=== PATIENT | female | born 1930 | race Caucasian/White ===

== ENCOUNTER → 2017-05-01 | Outpatient (CLI) | payer MEDICARE ==
--- NOTE | 2017-05-01 11:02 | WOMENS IMAGING REPORT ---
EXAM DESCRIPTION: BILAT DIAGNOSTIC MAMMO W/CAD COMPLETED DATE/TIME: 05/01/2017 9:46 am REASON FOR STUDY: NODULAR DENSITY;N63 N63 UNSPECIFIED LUMP IN BREAST COMPARISON: None. TECHNIQUE: Standard craniocaudal and mediolateral oblique views of each breast recorded using digita l acquisition. LIMITATIONS: None. FINDINGS: RIGHT BREAST MASSES: There is CALCIFICATIONS: No new or suspicious calcifications. ARCHITECTURAL DISTORTION: None. DEVELOPING DENSITY: None. ASYMMETRY: There is asymmetric density in the retroareolar portion of the right breast with apparent nipple retraction. OTHER: There is associated skin thickening. Ultrasound will be obtained for further evaluation LEFT BREAST MASSES: No suspicious masses. CALCIFICATIONS: No new or suspicious calcifications. ARCHITECTURAL DISTORTION: None. DEVELOPING DENSITY: None. ASYMMETRY: None noted. OTHER: No other significant finding. Read with the assistance of CAD: .[facility] - R2 Cenova Version 1.3 .[facility] - R2 Cenova Version 1.3 .[facility] - R2 Cenova Version 2.4 .[facility] - R2 Cenova Version 2.4 .[facility] - R2 Head Cager Version 9.2 BREAST ULTRASOUND: TECHNIQUE: Static and dynamic grayscale images acquired of the right breast in the specific areas of clinical/mammographic concern. Selected color Doppler images recorded. ELASTOGRAPHY PERFORMED: No. LIMITATIONS: None. FINDINGS: MASS: An irregular hypoechoic solid mass is identified measuring 1.3 x 1.1 x 1.4 cm in diameter in th e retroareolar area at the approximate 12 o'clock position suspicious for a neoplastic process. ELASTOGRAPHY CHARACTERISTICS: Not applicable. OTHER: No other significant finding. IMPRESSION: Asymmetric density in the retroareolar portion of the right breast with apparent nipple retraction and skin thickening. An irregular hypoechoic solid mass is identified on the ultrasound e valuation suspicious for a neoplastic process. BREAST DENSITY: b. There are scattered areas of fibroglandular density. BIRAD: 4 Suspicious. Biopsy should be considered. RECOMMENDATION: RECOMMENDED FOLLOW UP: Birads 4: Biopsy should be performed in the absence of clinic al contraindication. SPECIFIC INTERVENTION/IMAGING/CONSULTATION RECOMMENDED:The suspicious finding(s) amenable to US guide d core/vacuum assisted biopsy. COMMUNICATION:The imaging findings were not discussed with the patient. Her referring provider has be en notified of the findings. COMMENT: The patient has been notified of the results by letter per SA requirements. Additional no tification policies are in place for contacting patient with suspicious or incomplete findings. Quality ID #225: The [employer] recommends an annual screening mammogram for women aged 40 years or over. This facility utilizes a reminder system to ensure that all patients receive reminder letters, and/or direct phone calls for appointments. This includes reminders for routine scr eening mammograms, diagnostic mammograms, or other Breast Imaging Interventions when appropriate. Th is patient will be placed in the appropriate reminder system. The [employer] (ACR) has developed recommendations for screening MRI of the breast s in certain patient populations, to be used in conjunction with mammography. Breast MRI surveillanc e may be appropriate for women with more than 20% lifetime risk of developing breast cancer as deter mined by genetic testing, significant family history of the disease, or history of mantle radiation f or Hodgkins Disease. ACR Practice Guidelines 2008. TECHNICAL DOCUMENTATION: FINDING NUMBER: (1) ASSESSMENT: (1) JOB ID: [id number] [employer]- All Rights Reserved
--- NOTE | 2017-05-01 11:03 | WOMENS IMAGING REPORT ---
EXAM DESCRIPTION: U/S BREAST UNILAT LIMITED COMPLETE DATE/TIME: 05/01/2017 10:16 am REASON FOR STUDY: RT BREAST MASS,N63 N63 UNSPECIFIED LUMP IN BREAST FINDINGS: Please see combined report for performance of procedure and radiologic supervision and int erpretation. IMPRESSION: Please see combined report for performance of procedure and radiologic supervision and i nterpretation.
== END ==
LOC: WI 08:41
PROVIDERS: ATTEND Internal Medicine
DX: N63 Unspecified lump in breast (principal)
CPT/HCPCS: 76642; G0204; 77066

== ENCOUNTER → 2017-05-30 | Outpatient (CLI) | payer MEDICARE ==
[~2017-05-30] MED LIST: AMINOPHYLLINE INJ/PF 250 MG/10 ML SDV IV ONE; REGADENOSON INJ 0.4 MG/5 ML DISP.SYRIN IV ONE
--- NOTE | 2017-05-30 13:34 | DRAGON STRESS TEST REPORT ---
Times INTRAVENOUS LEXISCAN CARDIOLITE STRESS TEST USING SINGLE PHOTON EMMISION COMPUTERIZED TOMOGRAPHIC. DATE OF PROCEDURE: May 30, 2017 INDICATION : Abnormal electrocardiogram CARDIAC RISK FACTORS: Hypertension, rheumatoid arthritis RESTING EKG: Sinus rhythm with left bundle branch block pattern STRESS EKG: No significant changes noted with LexiScan bolus REASON FOR TERMINATION: Protocol. PROCEDURE REPORT: Baseline heart rate 72 beats per minute with blood pressure of 135/84. Patient had no significant complaints. Heart rate at 2 minutes post bolus 96 with a blood pressure of 138/57. 3 minutes post bolus heart rate 82 with blood pressure of 140/60. No significant EKG changes were noted. Patient had no significant complaints during the procedure or postprocedure. Patient injected with Aminophyllin 75 mg at 3 minutes or later after Lexiscan bolus. CONCLUSIONS: Normal EKG and hemodynamic response to IV LexiScan. NUCLEAR DATA: At rest the patient was given 10.29 millicuries of technetium 99 sestamibi injected intravenously. As per protocol rest gated SPECT images were obtained. Subsequently the patient was given intravenous LexiScan at a dose of 0.4 mg in 5 mL intravenously, followed by flush with normal saline. Subsequently the stress dose of 30.2 millicuries of technetium 99 sestamibi was injected intravenously. As per protocol stress gated images were obtained. NUCLEAR INTERPRETATION: Both raw and processed data were used for interpretation. Visual, qualitative, computer-generated quantitative data was used. There was good myocardial uptake of technetium compound. Motion artifact and soft tissue attenuations were noted. Increased visceral uptake was noted. No definitive areas of transient perfusion defect noted, except for mild fixed defect noted in the basal inferior wall. No definitive areas of fixed perfusion defect or scars noted. EKG gated imaging showed LV EF at 55 %, rest and stress gated EF similar visually. T. I D. ratio was 0.91. Lung heart ratio noted to be within normal limits 0.34. No significant extracardiac and abnormal radiotracer activities were noted. RV free wall uptake was noted to be WNL. IMPRESSION: Also refer to comments under nuclear interpretation. Also test results needs to be interpreted in the context of pretest probability. 1. There is no definitive scintigraphic evidence of LexiScan induced myocardial ischemia. 2. There is no definitive scintigraphic evidence of myocardial infarction/scar except for small area of fixed defect in the basal inferior wall consistent with mild scar. 3. EKG gated imaging shows left ventricular ejection fraction of approximately 55 %. 4. Clinical correlation requested as occasionally single vessel disease or balanced ischemia could be missed. In approximately 10% of the cases Lexiscan may not cause adequate vasodilatory stress. RECOMMENDATIONS: Aggressive risk factor modification, medical therapy. Clinical correlation with echocardiogram derived ejection fraction. Inability to exercise by itself can lead to increased cardiovascular event risks. Consider cardiology consultation and or follow-up if clinically indicated. I AM AVAILABLE FOR CARDIOLOGY CONSULTATION AND FOLLOWUP IF REQUESTED BY PMJesús Gregorio M.D., [employer] forder operator, Board certified in cardiovascular diseases, Nuclear cardiology, Echocardiography Cardiac CT and cardiac MRI Ph. [phone] MARGARITO
== END ==
LOC: RAD 06:39
PROVIDERS: ATTEND Internal Medicine Cardiovascular Disease
DX: I44.7 Left bundle-branch block, unspecified (principal); R94.31 Abnormal electrocardiogram [ECG] [EKG]
CPT/HCPCS: 93017; 78452; A9500; J2785; J0280; Q9969

== ENCOUNTER 2017-06-05 07:36 | Day surgery (SDC) | payer MEDICARE ==
[2017-05-24 12:45] LABS: HEMATOCRIT 37.1 % (36.0-47.0); HEMOGLOBIN 12.8 g/dL (12.0-15.5); HGB HCT DIFFERENCE 1.3; MEAN CORPUSCULAR HGB CONC 34.4 g/dL (32.0-36.0); MEAN CORPUSCULAR VOLUME 99 fl (80-97); RED BLOOD COUNT 3.76 10^6/uL (3.72-5.28); RED CELL DISTRIBUTION WIDTH 15.7 % (11.5-14.0)
[2017-05-24 13:04] LABS: ANION GAP 11 (5-19); BLOOD UREA NITROGEN 29 mg/dL (7-20); CALCIUM 9.8 mg/dL (8.4-10.2); CARBON DIOXIDE 21 mmol/L (22-30); CHLORIDE 107 mmol/L (98-107); CREATININE RESULT 0.89 mg/dL (0.52-1.25); GLUCOSE 109 mg/dL (75-110); POTASSIUM 4.6 mmol/L (3.6-5.0); SODIUM 139.4 mmol/L (137-145)
--- NOTE | 2017-05-25 00:08 | EKG REPORT ---
SEVERITY:- ABNORMAL ECG - SINUS RHYTHM PROBABLE LEFT ATRIAL ABNORMALITY LEFT VENTRICULAR HYPERTROPHY INFERIOR INFARCT, ACUTE ANTERIOR INFARCT, ACUTE : Confirmed by: Vikas Gregorio 25-May-2017 00:07:21
[~2017-06-05 07:36] MED LIST changes: -AMINOPHYLLINE INJ/PF 250 MG/10 ML SDV IV ONE; +CLINDAMYCIN 600 MG/D5W RTU 600 MG/50 ML RTUPB IV PRN; +LACTATED RINGERS 1000 ML IV PRN; +LIDOCAINE 0.5% INJ-PF (5 MG/ML) 50 ML SDV SUBCUT PRN; -REGADENOSON INJ 0.4 MG/5 ML DISP.SYRIN IV ONE
[2017-06-05] MEDS ORDERED: METHYLENE BLUE 50 MG/10 ML AMPULE ONE (07:38)
[2017-06-05 08:22] LABS: PROTHROMBIN TIME 13.1 SEC (11.4-15.4)
[2017-06-05 08:23] LABS: PARTIAL THROMBOPLASTIN TIME 33.5 SEC (23.5-35.8)
[2017-06-05] MEDS ORDERED: ALBUTEROL SULFATE 0.083% NEB 2.5 MG/3 ML AMPUL NEB ONE (08:56)
[2017-06-05] MEDS ORDERED: LIDOCAINE 1% INJ-PF (10 MG/ML) 30 ML SDV ONE (09:06)
[2017-06-05] MEDS ORDERED: MICROFIBRILLAR COLLAGEN 1 GM PACK ONE (09:06)
[2017-06-05] MEDS ORDERED: FENTANYL CITRATE INJ/PF 250 MCG/5 ML AMPULE ONE (09:16)
[2017-06-05] MEDS ORDERED: MIDAZOLAM 2 MG/2 ML INJ ONE (09:16)
[2017-06-05] MEDS ORDERED: MORPHINE SULFATE 10 MG/ML INJ ONE (09:17)
[2017-06-05] MEDS ORDERED: EPHEDRINE SULFATE INJ 50 MG/1 ML AMPULE ONE (09:17)
[2017-06-05] MEDS ORDERED: ACETAMINOPHEN 0 ML IV ONE (09:17)
[2017-06-05] MEDS ORDERED: PROPOFOL INJ 200 MG/20 ML VIAL IV ONE (09:17)
[2017-06-05] MEDS ORDERED: BUPIVACAINE INJ/PF LIPOSOME/PF 266 MG/20 ML SDV ONE (10:49)
[2017-06-05] MEDS ORDERED: FENTANYL CITRATE INJ/PF 100 MCG/2 ML AMPUL IV PRN ×3 (11:00)
[2017-06-05] MEDS ORDERED: DIPHENHYDRAMINE HCL 50 MG/ML VIAL IV PRN (11:00)
[2017-06-05] MEDS ORDERED: KETOROLAC TROMETHAMINE 10 MG TABLET PO PRN (11:16)
--- NOTE | 2017-06-05 11:16 | PDOC DISCHARGE SUMMARY ---
Discharge Summary (SDC) - Discharge Final Diagnosis: right breast carcinoma Date of Surgery: 06/05/17 Discharge Date: 06/05/17 Condition: Stable Treatment or Instructions: [facility] [address] [place] [id number] Care Instructions Following Your Mastectomy Activities: Resume normal activities when you feel comfortable. It is best to remain as active as possible to speed your recovery. It is common to experience some fatigue after surgery and you may find that short naps are helpful. Avoid strenuous activity such as weight lifting, tennis, etc at your surgical site for two weeks. Perform gentle arm exercises daily and do not favor your operative arm to due increased risk of mobility issues postoperatively. No driving for 7 days after surgery. Do not drive if you are taking pain medication other than Tylenol or Ibuprofen. No swimming, tub baths or soaking in a hot tub for 4 weeks. There are no dietary restrictions. Do not smoke as this impairs wound healing. Surgical Site care: You may shower in 48 hours to include washing the wound with soap and water using your hands. Leave the skin glue intact. Do not scrub the incision. Pat the area dry with a towel. You do not need to recover the wound although some patients find that they feel more comfortable using a light dressing for a few days to absorb any minimal drainage which may occur. Many patients also find that keeping a dressing around the drain exit site is helpful to absorb any drainage which may leak around the tubing. If you use a dressing in this manner change it at least every day. Do not use heating pad or apply an ice pack to the operative site. You may apply deodorant if you are careful to avoid getting it on the wound itself. Empty the bulbs attached to the drain every 12 hours and measure the fluid output separately from each drain. Please also strip each drain each time you empty it to prevent clogging. Keep a record of the output and bring this record with you each time you come to the office for postoperative care. A drain is ready to be removed when its output is 30 mL per 24 hours per drain for 2 consecutive days. Please call the office to inform our staff that you need to come in for drain removal. Medications: Take Motrin (ibuprofen) 600 mg to 800 mg every 8 hours around the clock. You may taper this medication as you experience less pain. Take narcotic pain control such as Tylenol #3 or Percocet one to tablets every six hours as needed for breakthrough pain. Do not take over the counter Tylenol if you are taking either Tylenol #3 or Percocet. Again, you cannot drive while taking narcotic pain medication. Resume all of your normal prescription medications after your surgery unless instructed otherwise. You may experience constipation after surgery while taking pain medications. If using a narcotic on a regular basis, take a stool softener such as Colace twice a day. It is helpful to stay hydrated by drinking lots of fluids. Walking is also helpful and is good exercise after surgery. If you need extra help, use Milk of Magnesia according to the directions on the package. Follow-up: Call our office at to make a follow-up appointment in 10-14 days. Your doctor will call to discuss the pathology report with you as soon as it is available. Concerns: If you had a sentinel lymph node biopsy with your mastectomy, your urine may have a greenish discoloration. This is normal and will resolve as the blue dye slowly leaves your system. If you notice significant leakage around the drains , this is not normal. The drains may be clogged. Please call our office to come in immediately for the drains to be checked. Some bruising may occur and will go away over time. If you have a fever of 101.5 or greater, chills, redness at the incision site, excessive drainage from your wound or severe pain not relieved by pain medication, call your doctor. A physician is available 24 hours a day 7 days a week in addition to regular office hours. If problems arise after normal office hours please call the hospital at . Please call if you have any questions or concerns. Prescriptions: Ketorolac Tromethamine [Toradol 10 mg Tablet] 10 mg PO Q6HP PRN #20 tablet PRN Reason: Referrals: FRENCH LONG MD [Primary Care Provider] - Discharge Diet: As Tolerated Discharge Activity: Activity As Tolerated Report the Following to Your Physician Immediately: Increase in Pain, Fever over 101 Degrees, Unusual Bleeding, Redness, Swelling, Warmth, Drainage-Foul Smelling
[2017-06-05] MEDS ORDERED: ONDANSETRON HCL INJ/PF 4 MG/2 ML SDV IV PRN (11:17)
--- NOTE | 2017-06-05 11:18 | Operative Report ---
Operative Report DATE OF SURGERY: 06/05/17 PREOPERATIVE DIAGNOSIS: Right breast carcinoma POSTOPERATIVE DIAGNOSIS: Same OPERATION: Right simple mastectomy with drain of chest wall SURGEON: JIL SANCHEZ 1ST TERMINAL SUPERVISOR: ENZO PUENTE ANESTHESIA: GA TISSUE REMOVED OR ALTERED: Right breast COMPLICATIONS: None ESTIMATED BLOOD LOSS: 1 50 cc INTRAOPERATIVE FINDINGS: See below PROCEDURE: The patient was seen in the preop holding area where the right breast was marked by Dr. Nicholson's. The patient was then taken to the operating where general anesthesia was induced. Because of the patient's advanced age, arthritic condition and severely decreased mobility, we left the left arm resting on the left side of the abdomen, and the right arm minimally abducted, with the forearm and hand at her side. This did give us adequate exposure to the right chest wall. The chest wall was prepped and draped in sterile fashion. Surgical plan and surgical timeout was conducted. Markings were made on the skin for a standard right simple mastectomy. The skin was anesthetized with 1% plain lidocaine. The ellipse was incised with the #10 blade and superior and inferior skin and subcutaneous flaps were raised in a anterior medial lateral and inferior direction. The right breast was then taken off of the pectoralis major muscle uneventfully. There was no evidence of gross extension of tumor to the chest wall. The breast was taken off from the level of the subclavicular region but not high, medially to the parasternal chest wall, and inferiorly to the takeoff of the serratus anterior muscle. We did not extend the dissection laterally towards the tail of Jasso but divided the tissue just at the lateral border of the pectoralis major muscle. The the specimen was oriented with a short suture in the superior position, and a long suture in the lateral position. Specimen sent to pathology for permanent analysis A large Azeem drain was placed in the inferior skin flap inferior laterally, secured to skin with 2-0 Prolene suture. Hemostasis was achieved. We closed the mastectomy incision with 2 running 2-0 Vicryl sutures. 40 cc of dilute Exparel long-acting liposomal bupivacaine was injected into the subcutaneous tissues above and below the closed incision and the skin closed with skin glue, Dermabond. The drain was hooked to bulb suction. The patient tolerated procedure well without complications, was extubated, taken to recovery room in stable condition. The physician bricklayer's assistant, Ms. Wing, provided assistance during this case by: assisting with retracting tissue, instillation of local anesthesia and closure of skin incisions.
[2017-06-05] MEDS ORDERED: FENTANYL CITRATE INJ/PF 100 MCG/2 ML AMPUL ONE (12:00)
[2017-06-05] MEDS ORDERED: SUCCINYLCHOLINE CHLORIDE INJ 200 MG/10 ML VIAL ONE (13:46)
[2017-06-05] MEDS ORDERED: GLYCOPYRROLATE INJ 0.4 MG/2 ML VIAL ONE (13:46)
[2017-06-05] MEDS ORDERED: DEXAMETHASONE SOD PHOSPHATE INJ 4 MG/1 ML VIAL ONE (13:46)
[2017-06-05] MEDS ORDERED: LIDOCAINE 2% INJ-PF (20 MG/ML) 10 ML AMPUL ONE (13:46)
[2017-06-05] MEDS ORDERED: ONDANSETRON HCL INJ/PF 4 MG/2 ML SDV ONE (13:46)
[2017-06-05 15:15] VITALS: BP 133/72
== END 2017-06-05 14:50 | disposition home or self-care (01) ==
LOC: OROUT 07:36
PROVIDERS: ATTEND Surgery
PROC: 0HTT0ZZ Resection of Right Breast, Open Approach (ICD-10-PCS; principal; 2017-06-05 09:30)
DX: C50.811 Malignant neoplasm of overlapping sites of right female breast (principal); M06.9 Rheumatoid arthritis, unspecified; Z88.0 Allergy status to penicillin; Z88.3 Allergy status to other anti-infective agents; Z91.09 Other allergy status, other than to drugs and biological substances; Z79.899 Other long term (current) drug therapy; Z79.02 Long term (current) use of antithrombotics/antiplatelets
CPT/HCPCS: 93005; 36415 ×2; 85027; 85610; 85730; 80048; 88307 ×2; 93010; 19303; J2250; J1100; J3010 ×2; J3490 ×2; J0330; J2405; A9270 ×2; J2704; C9290; 400; J0131; J2270; Q9968

== ENCOUNTER → 2017-06-17 | Outpatient (CLI) | payer MEDICARE ==
[2017-06-17 11:12] LABS: ALANINE AMINOTRANSFERASE 32 U/L (9-52); ALBUMIN 3.9 g/dL (3.5-5.0); ALKALINE PHOSPHATASE 114 U/L (38-126); ASPARTATE AMINO TRANSFERASE 24 U/L (14-36); BILIRUBIN,DIRECT 0.3 mg/dL (0.0-0.4); BILIRUBIN,TOTAL 0.5 mg/dL (0.2-1.3); CHOLESTEROL 152.18 mg/dL (0-200); Direct HDL 46 mg/dL (>40); TOTAL PROTEIN 6.7 g/dL (6.3-8.2); TRIGLYCERIDES 70 mg/dL (<150)
[2017-06-17 11:24] LABS: DIRECT LDL 85 mg/dL (<100)
== END ==
LOC: OD 08:48
PROVIDERS: ATTEND Internal Medicine
DX: E78.00 Pure hypercholesterolemia, unspecified (principal); Z79.899 Other long term (current) drug therapy; M06.9 Rheumatoid arthritis, unspecified; R53.82 Chronic fatigue, unspecified
CPT/HCPCS: 36415; 80061; 80076; 82306; 82607; 82746

== ENCOUNTER 2017-08-14 18:36 | Emergency (ER) | payer MEDICARE ==
[2017-08-14 19:24] LABS: ABSOLUTE EOSINOPHILS # (AUTO) 0.2 10^3/uL (0.0-0.6); ABSOLUTE LYMPHOCYTES (AUTO) 0.8 10^3/uL (0.5-4.7); ABSOLUTE MONOCYTES (AUTO) 0.7 10^3/uL (0.1-1.4); ABSOLUTE NEUT (AUTO) 7.3 10^3/uL (1.7-8.2); BASOPHILS % (AUTO) 0.3 % (0-2); EOSINOPHILS % (AUTO) 2.1 % (0-6); HEMATOCRIT 36.7 % (36.0-47.0); HEMOGLOBIN 12.7 g/dL (12.0-15.5); HGB HCT DIFFERENCE 1.4; LYMPHOCYTES % (AUTO) 8.8 % (13-45); MEAN CORPUSCULAR HEMOGLOBIN 33.2 pg (27.0-33.4); MEAN CORPUSCULAR HGB CONC 34.6 g/dL (32.0-36.0); MEAN CORPUSCULAR VOLUME 96 fl (80-97); MONOCYTES % (AUTO) 7.6 % (3-13); RED BLOOD COUNT 3.83 10^6/uL (3.72-5.28); RED CELL DISTRIBUTION WIDTH 13.8 % (11.5-14.0); SEGMENTED NEUTROPHILS % (AUTO) 81.2 % (42-78)
[2017-08-14 19:51] LABS: CREATINE KINASE MB 0.87 ng/mL (<4.55); TROPONIN I < 0.012 ng/mL
[2017-08-14 20:42] LABS: ALANINE AMINOTRANSFERASE 32 U/L (9-52); ALBUMIN 3.6 g/dL (3.5-5.0); ALKALINE PHOSPHATASE 97 U/L (38-126); ANION GAP 11 (5-19); ASPARTATE AMINO TRANSFERASE 17 U/L (14-36); BILIRUBIN,DIRECT 0.2 mg/dL (0.0-0.4); BILIRUBIN,TOTAL 0.4 mg/dL (0.2-1.3); BLOOD UREA NITROGEN 30 mg/dL (7-20); CARBON DIOXIDE 23 mmol/L (22-30); CHLORIDE 98 mmol/L (98-107); CREATINE KINASE 44 U/L (30-135); CREATININE RESULT 0.87 mg/dL (0.52-1.25); GLUCOSE 115 mg/dL (75-110); POTASSIUM 4.9 mmol/L (3.6-5.0); SODIUM 132.2 mmol/L (137-145); TOTAL PROTEIN 6.2 g/dL (6.3-8.2)
[2017-08-14] MEDS ORDERED: NORMAL SALINE 1000 ML 1,000 ML IV ONE (21:00)
[2017-08-14 22:05] LABS: APPEARANCE,URINE CLEAR; BILIRUBIN,URINE NEGATIVE (NEGATIVE); GLUCOSE, URINE NEGATIVE (NEGATIVE); KETONES,URINE NEGATIVE (NEGATIVE); LEUKOCYTE ESTERASE,URINE NEGATIVE (NEGATIVE); NITRITE,URINE NEGATIVE (NEGATIVE); PROTEIN,URINE NEGATIVE (NEGATIVE); URINE SPECIFIC GRAVITY 1.016; UROBILINOGEN,URINE NEGATIVE mg/dL (<2.0)
[2017-08-14] MEDS ORDERED: LEVOFLOXACIN 750 MG/D5W RTU 750 MG/150 ML RTUPB IV ONE (23:31)
--- NOTE | 2017-08-14 23:32 | ER Document Report ---
ED General - General Chief Complaint: General Weakness Stated Complaint: WEAKNESS Notes: Patient is an 87-year-old female with a recent total mastectomy on the right who presents with 2 months of progressively worsening generalized weakness and fatigue. Patient denies any new or different about her symptoms today that prompted a visit to the emergency department only that she was becoming increasingly concerned about the fact that she was not clinically improving over this period of time. She has not seen her primary care doctor regarding her general weakness and has not received any formal physical or occupational therapy after her surgery. She denies any specific symptoms including nausea, vomiting, diarrhea, chest pain, shortness of breath, fever, headache, neck pain , or dysuria. Her son at the bedside notes that since she had the mastectomy for breast cancer she has begun perseverating to much higher degree on her health and has been completing less activities that she used to enjoy. Patient herself agrees that she has become much more anxious regarding her health as of late and feels that this may be contributing to her symptoms. TRAVEL OUTSIDE OF THE [place] IN LAST 30 DAYS: No - Related Data Allergies/Adverse Reactions: cephalexin monohydrate [From Keflex] Allergy (Verified 08/14/17 18:48) Penicillins Allergy (Verified 08/14/17 18:48) sulfamethoxazole [From Bactrim] Allergy (Verified 08/14/17 18:48) trimethoprim [From Bactrim] Allergy (Verified 08/14/17 18:48) Past Medical History - General Information source: Patient - Social History Smoking Status: Never Smoker Chew tobacco use (# tins/day): No Frequency of alcohol use: None Drug Abuse: None Lives with: Spouse/Significant other Family History: Reviewed & Not Pertinent Patient has suicidal ideation: No Patient has homicidal ideation: No - Past Medical History Cardiac Medical History: Reports: Hx Hypertension Denies: Hx Coronary Artery Disease, Hx Heart Attack Pulmonary Medical History: Reports: Hx Asthma, Hx Pneumonia - CHILDHOOD Denies: Hx Bronchitis, Hx COPD Neurological Medical History: Denies: Hx Cerebrovascular Accident, Hx Seizures Renal/ Medical History: Denies: Hx Peritoneal Dialysis Musculoskeltal Medical History: Reports Hx Arthritis - RA Past Surgical History: Reports: Hx Mastectomy - Right, Hx Orthopedic Surgery - bilateral hip and knees - Immunizations Hx Diphtheria, Pertussis, Tetanus Vaccination: Yes Review of Systems - Review of Systems Notes: Constitutional: Negative for fever. HENT: Negative for sore throat. Eyes: Negative for visual changes. Cardiovascular: Negative for chest pain. Respiratory: Negative for shortness of breath. Gastrointestinal: Negative for abdominal pain, vomiting or diarrhea. Genitourinary: Negative for dysuria. Musculoskeletal: Negative for back pain. Skin: Negative for rash. Neurological: Negative for headaches, weakness or numbness. 10 point ROS negative except as marked above and in HPI. Physical Exam - Vital signs Vitals: Temp Pulse Resp BP Pulse Ox 98.4 F 95 16 145/69 H 95 08/14/17 18:45 08/14/17 18:45 08/14/17 18:45 08/14/17 18:45 08/14/17 18:45 Interpretation: Hypertensive Notes: PHYSICAL EXAMINATION: GENERAL: Well-appearing, well-nourished and in no acute distress. HEAD: Atraumatic, normocephalic. EYES: Pupils equal round and reactive to light, extraocular movements intact, sclera anicteric, conjunctiva are normal. ENT: nares patent, oropharynx clear without exudates. Moist mucous membranes. NECK: Normal range of motion, supple without lymphadenopathy LUNGS: Breath sounds clear to auscultation bilaterally and equal. No wheezes rales or rhonchi. HEART: Regular rate and rhythm, systolic ejection murmur 4 out of 6 ABDOMEN: Soft, nontender, normoactive bowel sounds. No guarding, no rebound. No masses appreciated. EXTREMITIES: Normal range of motion, no pitting or edema. No cyanosis. NEUROLOGICAL: No focal neurological deficits. Moves all extremities spontaneously and on command. PSYCH: Normal mood, normal affect. SKIN: Warm, Dry, normal turgor, no rashes or lesions noted. Course - Re-evaluation Re-evalutation: 08/14/17 23:28 Presentation and an overall well-appearing patient in no acute distress who complains of generalized weakness. At time of evaluation, patient's vitals are within normal limits and they are denying any additional acute complaints. Physical examination without focal findings. No neurologic deficits. They deny any chest pain, shortness of breath, nausea, vomiting, or diarrhea. No dysuria or fever. Basic laboratories including and urinalysis are unremarkable. Troponin is also negative. Low clinical suspicion for ACS, occult pneumonia, acute intra-abdominal pathology, stroke, or transient ischemic attack based on clinical history, examination, and laboratories. They have tolerated oral intake without difficulty. I have discussed the importance of close outpatient follow-up as well as the need to return to emergency room immediately should they have any new or worsening symptoms. The patient and surrogate's are in agreement with this plan and verbalized indications for return to emergency department. - Vital Signs Vital signs: Temp Pulse Resp BP Pulse Ox 98.4 F 73 15 179/69 H 97 08/14/17 18:45 08/14/17 21:54 08/15/17 01:04 08/15/17 01:04 08/15/17 01:00 - Laboratory Result Diagrams: 08/14/17 19:15 08/14/17 20:10 Laboratory results interpreted by me: 08/14/17 08/14/17 19:15 20:10 Seg Neutrophils % 81.2 H Lymphocytes % 8.8 L Sodium 132.2 L BUN 30 H Glucose 115 H Total Protein 6.2 L - EKG Interpretation by Me Additional EKG results interpreted by me: 08/15/17 03:05 Normal sinus rhythm. Rate 68. No ST elevations or depressions. QTC is 443. Discharge - Discharge Clinical Impression: Generalized weakness Condition: Good Disposition: HOME, SELF-CARE Additional Instructions: Please return to the emergency room immediately if you experience any concerning symptoms including high fevers, severe headache, chest pain, difficulty breathing, abdominal pain, slurred speech, numbness or weakness in your arms or legs, or any other symptom that concerns you. Referrals: FRENCH LONG MD [Primary Care Provider] - Follow up as needed
--- NOTE | 2017-08-15 00:09 | EKG REPORT ---
SEVERITY:- ABNORMAL ECG - SINUS RHYTHM LEFT ATRIAL ABNORMALITY LEFT VENTRICULAR HYPERTROPHY PROBABLE INFERIOR INFARCT, OLD ANTERIOR ST ELEVATION, PROBABLY DUE TO LVH : Confirmed by: Vikas Gregorio 15-Aug-2017 00:09:12
[2017-08-15 01:25] VITALS: BP 179/69
== END 2017-08-15 01:25 | disposition home or self-care (01) ==
LOC: ER 18:36
DX: R53.1 Weakness (principal); R53.83 Other fatigue; R11.2 Nausea with vomiting, unspecified; R19.7 Diarrhea, unspecified; R07.9 Chest pain, unspecified
CPT/HCPCS: 93005; 99285; 96360; 36415; 82553; 82550; 85025; 80053; 81001; 84484; 93010; J7030

== ENCOUNTER 2017-09-09 10:08 | Emergency (ER) | payer MEDICARE ==
--- NOTE | 2017-09-09 11:12 | ER Document Report ---
ED Hip Pain/Injury - General Chief Complaint: Hip Pain Stated Complaint: BILATERAL HIP PAIN Time Seen by Provider: 09/09/17 10:29 Information source: Patient, Relative Notes: 87-year-old female with past medical history as recorded who presents today with some bilateral hip pain since 6 days ago. Patient states at that time she was attempting to move a large object and started to have some pain to bilateral hips. She denies any falls or trauma. She denies any leg swelling. She denies any increased weakness of the legs or lower back pain. She denies any dysuria, nausea, vomiting, or fevers. TRAVEL OUTSIDE OF THE [place] IN LAST 30 DAYS: No - HPI Patient complains to provider of: Pain Occurred: Other - See above Where: Home Onset/Duration: Gradual Quality of pain: Achy Severity: Mild Pain Level: 1 Symptoms since fall: Other - See above Skin Color: Normal Rotation of extremity: None Pain with palpation of the pelvis: No - Related Data Allergies/Adverse Reactions: cephalexin monohydrate [From Keflex] Allergy (Verified 08/14/17 18:48) Penicillins Allergy (Verified 08/14/17 18:48) sulfamethoxazole [From Bactrim] Allergy (Verified 08/14/17 18:48) trimethoprim [From Bactrim] Allergy (Verified 08/14/17 18:48) Home Medications: Current Home Medications Amlodipine Besylate/Benazepril [Lotrel 5-10 mg Capsule] 10 mg PO DAILY 09/09/17 [History] Brinzolamide/Brimonidine Tart [Simbrinza 1%-0.2% Eye Drops] 1 drop BTH_EYE DAILY 09/09/17 [History] Ezetimibe [Zetia] 10 mg PO DAILY 09/09/17 [History] Montelukast Sodium [Singulair 10 mg Tablet] 10 mg PO DAILY 09/09/17 [History] Prednisolone Acetate [Pred Forte] 1 drop BTH_EYE DAILY 09/09/17 [History] Ranitidine HCl [Zantac 150 mg Tablet] 150 mg PO DAILY 09/09/17 [History] Vits A,C,E/Zinc/Copper [Savision Tablet] 1 tab PO DAILY 09/09/17 [History] Past Medical History - General Information source: Patient - Social History Smoking Status: Never Smoker Cigarette use (# per day): No Chew tobacco use (# tins/day): No Frequency of alcohol use: None Drug Abuse: None Family History: Reviewed & Not Pertinent Patient has suicidal ideation: No Patient has homicidal ideation: No - Past Medical History Cardiac Medical History: Reports: Hx Hypertension Denies: Hx Coronary Artery Disease, Hx Heart Attack Pulmonary Medical History: Reports: Hx Asthma, Hx Pneumonia - CHILDHOOD Denies: Hx Bronchitis, Hx COPD Neurological Medical History: Denies: Hx Cerebrovascular Accident, Hx Seizures Renal/ Medical History: Denies: Hx Peritoneal Dialysis Musculoskeltal Medical History: Reports Hx Arthritis - RA Past Surgical History: Reports: Hx Mastectomy - Right, Hx Orthopedic Surgery - bilateral hip and knees - Immunizations Hx Diphtheria, Pertussis, Tetanus Vaccination: Yes Review of Systems - Review of Systems Constitutional: denies: Fever Cardiovascular: denies: Chest pain, Dyspnea, Edema Respiratory: denies: Short of breath Gastrointestinal: denies: Vomiting Genitourinary: denies: Dysuria Musculoskeletal: denies: Leg swelling Skin: denies: Rash -: Yes All other systems reviewed and negative Physical Exam - Vital signs Vitals: Temp Pulse Resp BP Pulse Ox 98.5 F 73 18 186/80 H 97 09/09/17 10:30 09/09/17 10:30 09/09/17 10:30 09/09/17 10:30 09/09/17 10:30 Notes: Reviewed vital signs and nursing note as charted by RN. CONSTITUTIONAL: Alert and oriented and responds appropriately to questions. Well -appearing; well-nourished HEAD: Normocephalic; atraumatic NECK: Supple without meningismus; non-tender CARD: Regular rate and rhythm; no murmurs, no clicks, no rubs, no gallops; symmetric distal pulses RESP: Normal chest excursion without splinting or tachypnea; breath sounds clear and equal bilaterally ABD/GI: Normal bowel sounds; non-distended; soft, non-tender BACK: The back appears normal and is non-tender to palpation of the midline spine, there is no CVA tenderness EXT: Patient has rheumatological changes to hands and feet consistent with history. Patient is able to fully flex bilateral hips. There is no obvious swelling, erythema, or tenderness to the hips SKIN: No acute lesions noted NEURO: Moves all extremities equally; Motor and sensory function intact PSYCH: The patient's mood and manner are appropriate. Grooming and personal hygiene are appropriate. Course - Re-evaluation Re-evalutation: 09/09/17 11:31 Given the history and physical examination I will order an x-ray of the pelvis. Patient has bilateral prosthetic hips. Her main concern is that she possibly has "dislocated" her hips. I will verify that this is not true. The patient has been walking since the onset of pain. I do not believe hip dislocation is likely. Patient has no dysuria, abdominal tenderness, or pain to the midline spine. 09/09/17 11:45 X-ray shows no obvious hip pathology bilaterally. No change in exam. - Vital Signs Vital signs: Temp Pulse Resp BP Pulse Ox 98.5 F 73 18 186/80 H 97 09/09/17 10:30 09/09/17 10:30 09/09/17 10:30 09/09/17 10:30 09/09/17 10:30 Discharge - Discharge Clinical Impression: Bilateral hip pain Condition: Good Disposition: HOME, SELF-CARE Additional Instructions: Come back immediately for any increased pain, weakness or numbness, nausea, vomiting, fevers, change in location or quality of pain, or any other acute problems. Please make sure that you follow-up with the plate washer as we have discussed. Referrals: FRENCH LONG MD [Primary Care Provider] - Follow up as needed
--- NOTE | 2017-09-09 11:38 | RADIOLOGY REPORT (SQ) ---
EXAM DESCRIPTION: PELVIS AP COMPLETED DATE/TIME: 09/09/2017 11:14 am REASON FOR STUDY: 9, bilateral hip pain; no falls COMPARISON: None. NUMBER OF VIEWS: One view TECHNIQUE: AP Pelvis LIMITATIONS: None. FINDINGS: Bones are osteopenic. Total hip arthroplasty on the right. Bipolar arthroplasty on the l eft. No evidence of fracture or dislocation. IMPRESSION: No acute findings. TECHNICAL DOCUMENTATION: JOB ID: [id number] [employer]- All Rights Reserved
--- NOTE | 2017-09-09 13:24 | RADIOLOGY REPORT (SQ) ---
EXAM DESCRIPTION: FOOT LEFT COMPLETE COMPLETED DATE/TIME: 09/09/2017 1:11 pm REASON FOR STUDY: 9 pain COMPARISON: None. NUMBER OF VIEWS: Three views. TECHNIQUE: AP, lateral and oblique radiographic images acquired of the left foot. LIMITATIONS: Patient has extension deformities of the 3rd 4th and 5th toes at the MTP joints FINDINGS: MINERALIZATION: Osteoporotic BONES: No acute fracture or dislocation. In particular, no 2nd metatarsal fracture is identified. N o focal sclerosis worrisome for healed stress fracture. JOINTS: Valgus orientation of the toes, extension deformities at the 3rd 4th and 5th MTP joints. Judy nt space narrowing of the intertarsal joints SOFT TISSUES: Mild dorsal forefoot soft tissue swelling. No radiopaque foreign body. No soft tissue gas. OTHER: No other significant finding. IMPRESSION: No acute or chronic appearing fracture of the 2nd metatarsal TECHNICAL DOCUMENTATION: JOB ID: [id number] [employer]- All Rights Reserved
[2017-09-09 14:33] VITALS: BP 172/71
== END 2017-09-09 14:15 | disposition home or self-care (01) ==
LOC: ER 10:08
DX: M25.552 Pain in left hip (principal); M25.551 Pain in right hip; Z88.0 Allergy status to penicillin; Z88.3 Allergy status to other anti-infective agents; I10 Essential (primary) hypertension
CPT/HCPCS: 72170; 99283

== ENCOUNTER 2019-07-06 15:28 | Inpatient (IN) | payer MEDICARE ==
[2019-07-06 17:30] LABS: ABSOLUTE LYMPHOCYTES (AUTO) 0.5 10^3/uL (0.5-4.7); ABSOLUTE MONOCYTES (AUTO) 0.5 10^3/uL (0.1-1.4); ABSOLUTE NEUT (AUTO) 7.2 10^3/uL (1.7-8.2); BASOPHILS % (AUTO) 0.5 % (0-2); EOSINOPHILS % (AUTO) 0.6 % (0-6); HEMATOCRIT 36.3 % (36.0-47.0); HEMOGLOBIN 12.4 g/dL (12.0-15.5); LYMPHOCYTES % (AUTO) 6.3 % (13-45); MEAN CORPUSCULAR HEMOGLOBIN 34.5 pg (27.0-33.4); MEAN CORPUSCULAR HGB CONC 34.1 g/dL (32.0-36.0); MEAN CORPUSCULAR VOLUME 101 fl (80-97); MONOCYTES % (AUTO) 5.5 % (3-13); PLATELET COUNT 204 10^3/uL (150-450); RED BLOOD COUNT 3.59 10^6/uL (3.72-5.28); RED CELL DISTRIBUTION WIDTH 14.6 % (11.5-14.0); SEGMENTED NEUTROPHILS % (AUTO) 87.1 % (42-78); TOTAL CELLS COUNTED % (AUTO) 100 %; WHITE BLOOD COUNT 8.3 10^3/uL (4.0-10.5)
[2019-07-06 18:02] LABS: ALBUMIN 3.7 g/dL (3.5-5.0); ALKALINE PHOSPHATASE 108 U/L (38-126); ANION GAP 9 (5-19); ASPARTATE AMINO TRANSFERASE 25 U/L (14-36); BILIRUBIN,DIRECT 0.1 mg/dL (0.0-0.4); BILIRUBIN,TOTAL 0.6 mg/dL (0.2-1.3); BLOOD UREA NITROGEN 17 mg/dL (7-20); CALCIUM 9.3 mg/dL (8.4-10.2); CARBON DIOXIDE 23 mmol/L (22-30); CHLORIDE 106 mmol/L (98-107); GLUCOSE 137 mg/dL (75-110); POTASSIUM 3.9 mmol/L (3.6-5.0); TOTAL PROTEIN 7.1 g/dL (6.3-8.2)
--- NOTE | 2019-07-06 18:49 | ER Document Report ---
ED Wound - General Chief Complaint: Wound Infection Stated Complaint: TOE PAIN Time Seen by Provider: 07/06/19 18:33 Notes: Patient is a 89-year-old female with a history of rheumatoid arthritis on methotrexate who presents to the emergency department with a chief complaint of right foot wound. Family at the bedside report that the patient does ambulate with a walker but gradually her physical activity has declined. Over the past week the patient states that her shoe was rubbing on her toes causing her to develop a wound to the right second toe. Over the past few days she has had increased redness to the toe that streaks up the foot and to the right lateral ankle. Patient and family report a yellow thick discharge coming from the second great toe. They deny history of diabetes. They were sent to the emergency department by their primary care physician Dr. Lara. They did attempt to follow-up and make an appointment with wound care but they were not able to see them for 2 to 3 weeks. Patient and family deny fever. TRAVEL OUTSIDE OF THE [place] IN LAST 30 DAYS: No - Related Data Allergies/Adverse Reactions: cephalexin monohydrate [From Keflex] Allergy (Verified 07/06/19 16:24) Penicillins Allergy (Verified 07/06/19 16:24) sulfamethoxazole [From Bactrim] Allergy (Verified 07/06/19 16:24) trimethoprim [From Bactrim] Allergy (Verified 07/06/19 16:24) Past Medical History - General Information source: Patient, Relative - Social History Smoking Status: Never Smoker Chew tobacco use (# tins/day): No Frequency of alcohol use: None Drug Abuse: None Lives with: Family Family History: Reviewed & Not Pertinent Patient has suicidal ideation: No Patient has homicidal ideation: No - Past Medical History Cardiac Medical History: Reports: Hx Hypertension Denies: Hx Coronary Artery Disease, Hx Heart Attack Pulmonary Medical History: Reports: Hx Asthma, Hx Pneumonia - CHILDHOOD Denies: Hx Bronchitis, Hx COPD EENT Medical History: Reports: None Neurological Medical History: Reports: None. Denies: Hx Cerebrovascular Accident, Hx Seizures Endocrine Medical History: Reports: None Renal/ Medical History: Reports: None. Denies: Hx Peritoneal Dialysis Malignancy Medical History: Reports: None GI Medical History: Reports: None Musculoskeletal Medical History: Reports Hx Arthritis - RA Skin Medical History: Reports None Psychiatric Medical History: Reports: None Traumatic Medical History: Reports: None Infectious Medical History: Reports: None Past Surgical History: Reports: Hx Mastectomy - Right, Hx Orthopedic Surgery - bilateral hip and knees - Immunizations Hx Diphtheria, Pertussis, Tetanus Vaccination: Yes Review of Systems - Review of Systems Constitutional: No symptoms reported EENT: No symptoms reported Cardiovascular: No symptoms reported Respiratory: No symptoms reported Gastrointestinal: No symptoms reported Genitourinary: No symptoms reported Female Genitourinary: No symptoms reported Musculoskeletal: See HPI Skin: See HPI Hematologic/Lymphatic: No symptoms reported Neurological/Psychological: No symptoms reported Physical Exam - Vital signs Vitals: Temp Pulse Resp BP Pulse Ox 98.4 F 85 16 150/78 H 93 07/06/19 15:35 07/06/19 15:35 07/06/19 15:35 07/06/19 15:35 07/06/19 15:35 Interpretation: Hypertensive - Notes Notes: GENERAL: Well-appearing, well-nourished and in no acute distress. HEAD: Atraumatic, normocephalic. EYES: Pupils equal round and reactive to light, extraocular movements intact, sclera anicteric, conjunctiva are normal. ENT: Nares patent, oropharynx clear without exudates. Moist mucous membranes. NECK: Normal range of motion, supple without lymphadenopathy or JVD. LUNGS: Breath sounds clear to auscultation bilaterally and equal. No wheezes rales or rhonchi. HEART: Regular rate and rhythm without murmurs, rubs or gallops. ABDOMEN: Soft, nontender, normoactive bowel sounds. No guarding, no rebound. No masses appreciated. BACK: No cervical, thoracic, lumbar midline tenderness. No saddle anesthesia, normal distal neurovascular exam. GENITOURINARY: Deferred. EXTREMITIES: + open wound to the dorsal aspect of the 2nd toe on the right foot, there is a yellowish drainage. The toe is very erythematous. Erythema does extend to the dorsal aspect of the right foot and right ankle. Area is warm to touch. NEUROLOGICAL: Cranial nerves II through XII grossly intact. Normal speech. PSYCH: Normal mood, normal affect. SKIN: Warm, Dry, normal turgor, no rashes or lesions noted. Course - Re-evaluation Re-evalutation: 07/06/19 18:55 Upon initial evaluation of the patient she is sitting upright on stretcher and in no acute distress. Patient does have an open wound that is draining a yellow discharge from the second toe on the right foot. Will obtain a wound culture. Will obtain an x-ray to rule out osteomyelitis or fracture. Patient does not have a leukocytosis. Patient is afebrile, not tachycardic or hypotensive. - Vital Signs Vital signs: Temp Pulse Resp BP Pulse Ox 98.9 F 73 18 165/82 H 97 07/06/19 19:45 07/06/19 19:45 07/06/19 19:45 07/06/19 19:45 07/06/19 19:45 - Laboratory Result Diagrams: 07/06/19 17:10 07/06/19 17:10 Laboratory results interpreted by me: 07/06/19 07/06/19 17:10 17:10 RBC 3.59 L MCV 101 H MCH 34.5 H RDW 14.6 H Lymph % (Auto) 6.3 L Seg Neutrophils % 87.1 H Glucose 137 H 07/06/19 18:54 Patient does not have a significant leukocytosis. Patient's electrolytes are within normal limits. Blood cultures have been obtained. Laboratory 07/06/19 07/06/19 17:10 17:10 WBC 8.3 RBC 3.59 L Hgb 12.4 Hct 36.3 MCV 101 H MCH 34.5 H MCHC 34.1 RDW 14.6 H Plt Count 204 Lymph % (Auto) 6.3 L Bucks % (Auto) 5.5 Eos % (Auto) 0.6 Baso % (Auto) 0.5 Absolute Neuts (auto) 7.2 Absolute Lymphs (auto) 0.5 Absolute Monos (auto) 0.5 Absolute Eos (auto) 0.0 Absolute Basos (auto) 0.0 Seg Neutrophils % 87.1 H Sodium 137.8 Potassium 3.9 Chloride 106 Carbon Dioxide 23 Anion Gap 9 BUN 17 Creatinine 0.69 Est GFR ( Amer) > 60 Est GFR (MDRD) Non-Af > 60 Glucose 137 H Calcium 9.3 Total Bilirubin 0.6 Direct Bilirubin 0.1 Neonat Total Bilirubin Not Reportable Neonat Direct Bilirubin Not Reportable Neonat Indirect Bili Not Reportable AST 25 ALT 15 Alkaline Phosphatase 108 Total Protein 7.1 Albumin 3.7 - Diagnostic Test Radiology reviewed: Reports reviewed Radiology results interpreted by me: 07/06/19 19:29 Foot X-Ray 07/06/19 18:48 IMPRESSION: Marked osteopenia. No obvious osteomyelitis or fractures. Discharge - Discharge Clinical Impression: Wound of right foot Cellulitis Qualifiers: Site of cellulitis: extremity Site of cellulitis of extremity: lower extremity Laterality: right Qualified Code(s): L03.115 - Cellulitis of right lower limb Rheumatoid arthritis Qualifiers: Rheumatoid arthritis location: multiple sites Rheumatoid factor presence: unspecified presence Qualified Code(s): M06.9 - Rheumatoid arthritis, unspecified Condition: Stable Disposition: ADMITTED INPATIENT Admitting Provider: Tariq (Hospitalist) Unit Admitted: Medical Floor
--- NOTE | 2019-07-06 19:27 | RADIOLOGY REPORT (SQ) ---
EXAM DESCRIPTION: FOOT RIGHT COMPLETE COMPLETED DATE/TIME: 07/06/2019 7:14 pm REASON FOR STUDY: draining wound right 2nd toe, r/o osetomyelitis COMPARISON: None. NUMBER OF VIEWS: Three views. TECHNIQUE: AP, lateral and oblique without weight bearing radiographic images acquired of the right foot. LIMITATIONS: None. FINDINGS: MINERALIZATION: Severe osteopenia. BONES: No acute fracture. Metatarsus adductus. Lateral subluxation of all the MTP joints. No defini tive changes of osteomyelitis. JOINTS: No erosions. No zahira-articular osteopenia. No chondrocalcinosis. SOFT TISSUES: No swelling. No calcifications. OTHER: No other significant finding. IMPRESSION: Marked osteopenia. No obvious osteomyelitis or fractures. TECHNICAL DOCUMENTATION: JOB ID: [id number] [employer]- All Rights Reserved Reading location - IP/workstation name: [email or web address]
[2019-07-06] MEDS ORDERED: MORPHINE SULFATE 10 MG/ML INJ IV PRN ×5 (20:02→22:00)
[2019-07-06] MEDS ORDERED: LEVALBUTEROL HCL NEB 0.63 MG/3 ML AMPUL NEB PRN (20:02)
[2019-07-06] MEDS ORDERED: MAGNESIUM HYDROXIDE SUSP 30 ML UDCUP PO PRN (20:02)
[2019-07-06] MEDS ORDERED: ACETAMINOPHEN 325 MG TABLET PO PRN (20:02)
[2019-07-06] MEDS ORDERED: MAG HYDROX/AL HYDROX/SIMETH SUSP 30 ML UDCUP PO PRN (20:02)
[2019-07-06] MEDS ORDERED: ONDANSETRON HCL INJ/PF 4 MG/2 ML SDV IV PRN (20:04)
[2019-07-06] MEDS ORDERED: VANCOMYCIN HCL INJ 1000 MG VIAL IV ONE (20:06)
[2019-07-06] MEDS ORDERED: VANCOMYCIN HCL INJ 1000 MG VIAL IV SCH (20:15)
[2019-07-06] MEDS ORDERED: ERTAPENEM SODIUM INJ 1 GM VIAL IV SCH (20:15)
--- NOTE | 2019-07-06 20:39 | PDOC H&P ---
History of Present Illness Admission Date/PCP: 07/06/2019 19:59 FRENCH LONG MD Patient complains of: Right foot infection History of Present Illness: RADHA ABDI is a 89 year old female who presented to the emergency room with a one-week history of a right foot infection. Patient and her family admit that she began developing a wound on the right second toe approximately 1 week ago ca used by and ill fitting shoe rubbing on her toe. The toe wound has gradually worsened with increasing purulent yellow discharge and erythema expanding from the local area into the distal portion of the foot with red streaking noted traveling up the foot to the ankle. Patient was seen by her primary care provider today and he sent her to the emergency room for admission as he was unable to secure an appointment with the wound care clinic for 2 to 3 weeks. Patient denies other associated or accompanying signs and symptoms. She denies prior similar episodes. She has not identified any other aggravating or ameliorating factors for her right foot infection. In the emergency room she was found to have a normal WBC and x-ray showed no evidence of osteomyelitis. Patient was noted to be immunocompromised due to her use of methotrexate for control of rheumatoid arthritis. She was subsequently admitted to the hospital for further evaluation and treatment. Past Medical History Cardiac Medical History: Reports: Hypertension Denies: Coronary Artery Disease, Myocardial Infarction Pulmonary Medical History: Reports: Asthma, Pneumonia - CHILDHOOD Denies: Bronchitis, Chronic Obstructive Pulmonary Disease (COPD) EENT Medical History: Reports: Eyes - Glaucoma, macular degeneration, Nose - Allergic rhinitis Denies: Cataracts, Ears - Hearing aids Neurological Medical History: Denies: Hemorrhagic CVA, Ischemic CVA, Seizures Endocrine Medical History: Denies: Diabetes Mellitus Type 1, Diabetes Mellitus Type 2, Hyperthyroidism, Hypothyroidism, Obesity Renal/ Medical History: Denies: Chronic Kidney Disease, Nephrolithiasis Malignancy Medical History: Reports: Breast Cancer - Status post right mastectomy [address] Dominique GI Medical History: Reports: Other - Cholelithiasis without cholecystitis Denies: Cirrhosis, Crohn's Disease, Hepatitis, Ulcerative Colitis Musculoskeltal Medical History: Reports: Arthritis - Rheumatoid arthritis Denies: Gout Skin Medical History: Denies: Eczema, Psoriasis Psychiatric Medical History: Denies: Alcohol Dependency, Substance Abuse, Tobacco Dependency Traumatic Medical History: Reports: None Hematology: Denies: Anemia, Bleeding Tendencies Infectious Medical History: Reports: None Past Surgical History Past Surgical History: Reports: Mastectomy - Right, Orthopedic Surgery - bilateral hip and knee replacements Social History Information Source: Patient, Relative Lives with: Family, Spouse/Significant other Smoking Status: Never Smoker Electronic Cigarette use?: No Frequency of Alcohol Use: None Hx Recreational Drug Use: No Drugs: None Hx Prescription Drug Abuse: No - Advance Directive Resuscitation Status: Full Code Surrogate healthcare decision maker:: Rhea Abdi Family History Family History: CAD - Mother, DM - Maternal grandmother, Hypertension - Mother. denies: Arthritis, Malignancy Parental Family History Reviewed: Yes Children Family History Reviewed: No Sibling(s) Family History Reviewed.: Yes Medication/Allergy Home Medications: Amlodipine Besylate/Benazepril [Lotrel 5-10 mg Capsule] 1 cap PO DAILY 07/06/19 Oxybutynin Chloride [Oxybutynin Chloride ER] 10 mg PO DAILY 07/06/19 RX: Alprazolam [Xanax 0.5 mg Tablet] 0.5 mg PO WSUPPER PRN 07/06/19 RX: Clopidogrel Bisulfate [Plavix 75 mg Tablet] 75 mg PO DAILY 07/06/19 RX: Ezetimibe [Zetia 10 mg Tablet] 10 mg PO DAILY 07/06/19 RX: Lutein 6 mg PO DAILY 07/06/19 RX: Methotrexate Sodium [Rheumatrex 2.5 mg Tablet] 10 mg PO WE@1000 07/06/19 RX: Montelukast Sodium [Singulair 10 mg Tablet] 10 mg PO DAILY 07/06/19 RX: Ranitidine HCl [Heartburn Relief 150] 150 mg PO BID 07/06/19 Vits A,C,E/Zinc/Copper [Savision Tablet] 1 tab PO DAILY 07/06/19 Allergies/Adverse Reactions: cephalexin monohydrate [From Keflex] Allergy (Verified 07/06/19 16:24) Penicillins Allergy (Verified 07/06/19 16:24) sulfamethoxazole [From Bactrim] Allergy (Verified 07/06/19 16:24) trimethoprim [From Bactrim] Allergy (Verified 07/06/19 16:24) Review of Systems Constitutional: ABSENT: chills, fever(s) Eyes: ABSENT: visual disturbances, other - Eye pain Ears: ABSENT: hearing changes, other - Ear pain Nose, Mouth, and Throat: ABSENT: headache(s), mouth pain, sore throat Cardiovascular: ABSENT: chest pain, palpitations Respiratory: ABSENT: cough, dyspnea Gastrointestinal: ABSENT: abdominal pain, constipation, diarrhea, nausea, vomiting Genitourinary: ABSENT: dysuria, hematuria Musculoskeletal: ABSENT: back pain, joint swelling, muscle weakness Integumentary: PRESENT: as per HPI, erythema, wounds. ABSENT: pruritus, rash Neurological: ABSENT: confusion, convulsions, focal weakness, memory loss, syncope Psychiatric: ABSENT: anxiety, depression Endocrine: ABSENT: cold intolerance, heat intolerance Hematologic/Lymphatic: ABSENT: easy bleeding, easy bruising Allergic/Immunologic: ABSENT: seasonal rhinorrhea Physical Exam Vital Signs: Temp Pulse Resp BP Pulse Ox 98.9 F 73 18 165/82 H 97 07/06/19 19:45 07/06/19 19:45 07/06/19 19:45 07/06/19 19:45 07/06/19 19:45 Intake & Output 07/04/19 07/05/19 07/06/19 23:59 23:59 23:59 Weight 50 kg General appearance: PRESENT: no acute distress, cooperative Head exam: PRESENT: atraumatic, normocephalic Eye exam: PRESENT: conjunctiva pink. ABSENT: conjunctival injection, scleral icterus Ear exam: PRESENT: normal external ear exam. ABSENT: bleeding, drainage Mouth exam: PRESENT: dry mucosa, neck supple Neck exam: ABSENT: thyromegaly, tracheal deviation Respiratory exam: PRESENT: clear to auscultation reinier, symmetrical, unlabored Cardiovascular exam: PRESENT: RRR. ABSENT: clicks, gallop, rubs Pulses: PRESENT: normal radial pulses, normal dorsalis pedis pul Vascular exam: PRESENT: normal capillary refill. ABSENT: pallor GI/Abdominal exam: PRESENT: normal bowel sounds, soft Rectal exam: PRESENT: deferred Extremities exam: PRESENT: tenderness - Right second toe with erythema and edema and moderate local tenderness.. ABSENT: joint swelling, pedal edema Musculoskeletal exam: PRESENT: deformity - Mild deformities typical of rheumatoid arthritis changes noted. ABSENT: dislocation, tenderness Neurological exam: PRESENT: alert, oriented to person, oriented to place, oriented to time, oriented to situation, CN II-XII grossly intact. ABSENT: motor sensory deficit Psychiatric exam: PRESENT: appropriate affect, normal mood Skin exam: PRESENT: dry, warm, other - A small superficial ulcer of the dorsal right second toe with purulent drainage noted. An area of erythema surrounds the ulcer and extends to the distal right forefoot with lymphangitis noted extending up the foot to the ankle.. ABSENT: jaundice, rash, urticaria Results Laboratory Results: 07/06/19 17:10 07/06/19 17:10 07/06/19 07/06/19 17:10 17:10 WBC 8.3 RBC 3.59 L Hgb 12.4 Hct 36.3 MCV 101 H MCH 34.5 H MCHC 34.1 RDW 14.6 H Plt Count 204 Seg Neutrophils % 87.1 H Sodium 137.8 Potassium 3.9 Chloride 106 Carbon Dioxide 23 Anion Gap 9 BUN 17 Creatinine 0.69 Est GFR ( Amer) > 60 Glucose 137 H Calcium 9.3 Total Bilirubin 0.6 AST 25 Alkaline Phosphatase 108 Total Protein 7.1 Albumin 3.7 Impressions: Foot X-Ray 07/06/19 18:48 IMPRESSION: Marked osteopenia. No obvious osteomyelitis or fractures. Assessment and Plan - Diagnosis (1) Cellulitis of second toe of right foot Is this a current diagnosis for this admission?: Yes (2) Hypertension Qualifiers: Hypertension type: essential hypertension Qualified Code(s): I10 - Essential (primary) hypertension Is this a current diagnosis for this admission?: Yes (3) Hypertriglyceridemia Is this a current diagnosis for this admission?: Yes (4) Rheumatoid arthritis Qualifiers: Rheumatoid arthritis location: multiple sites Rheumatoid factor presence: unspecified presence Qualified Code(s): M06.9 - Rheumatoid arthritis, unspecified Is this a current diagnosis for this admission?: Yes (5) Immunocompromised status associated with infection Is this a current diagnosis for this admission?: Yes (6) Urinary incontinence in female Is this a current diagnosis for this admission?: Yes - Plan Summary Summary: Patient is admitted for IV antibiotic therapy utilizing vancomycin and meropenem initially pending blood and wound culture results. A surgical consultation will be obtained. Patient will receive morphine sulfate 2 to 4 mg IV every 2 hours on an as-needed basis per a sliding scale for pain. She will receive routine symptomatic and supportive cares. Her current antihypertensive regiment and o ther usual home medications will be continued as possible per hospital formulary or with reasonable formulary substitution. product manager financial services will assess the patient for appropriate post hospital care. - Time Time Spent with patient: 25-34 minutes Medications reviewed and adjusted accordingly: Yes Anticipated discharge: Home, Home with Homehealth, SNF - Inpatient Certification Based on my medical assessment, after consideration of the patient's comorbidities, presenting symptoms, or acuity I expect that the services needed warrant INPATIENT care.: Yes I certify that my determination is in accordance with my understanding of Medicare's requirements for reasonable and necessary INPATIENT services [42 CFR 412.3e].: Yes Medical Necessity: Significant Comorbidiites Make Outpatient Treatment Too Risky, Need Close Monitoring Due to Risk of Patient Decompensation, Need for IV Antibiotics, Need for Surgery, Risk of Complication if Not Cared For in Hospital
[2019-07-06] MEDS: VANCOMYCIN HCL 750 MG in DEXTROSE 5%-WATER 250 ML IV SCH (20:48)
[2019-07-06] MEDS ORDERED: VANCOMYCIN HCL 750 MG in DEXTROSE 5%-WATER 250 ML IV SCH (22:00)
[2019-07-06] MEDS: HEPARIN SOD (PORCINE) 5,000 UNIT/ML 1 ML VIAL SUBCUT SCH (22:12)
[2019-07-06] MEDS: MEROPENEM 500 MG in NORMAL SALINE 50 ML IV SCH (22:13)
[2019-07-06] MEDS: FAMOTIDINE 20 MG TABLET PO SCH (22:14)
[2019-07-07] MEDS: HEPARIN SOD (PORCINE) 5,000 UNIT/ML 1 ML VIAL SUBCUT SCH ×2 (06:08→14:40)
[2019-07-07] MEDS ORDERED: GLUCAGON,HUMAN RECOMB 1 MG INJ SUBCUT PRN (06:30)
[2019-07-07] MEDS ORDERED: DEXTROSE 40% GEL 15 GM TUBE PO PRN ×2 (06:30)
[2019-07-07] MEDS ORDERED: DEXTROSE 50%-WATER 25 GM/50 ML DISP.SYRIN IV PRN ×2 (06:30)
[2019-07-07 07:01] LABS: HEMATOCRIT 37.5 % (36.0-47.0); HEMOGLOBIN 12.9 g/dL (12.0-15.5); MEAN CORPUSCULAR HEMOGLOBIN 34.7 pg (27.0-33.4); MEAN CORPUSCULAR HGB CONC 34.3 g/dL (32.0-36.0); MEAN CORPUSCULAR VOLUME 101 fl (80-97); PLATELET COUNT 208 10^3/uL (150-450); RED BLOOD COUNT 3.71 10^6/uL (3.72-5.28); RED CELL DISTRIBUTION WIDTH 14.7 % (11.5-14.0)
[2019-07-07 07:22] LABS: ANION GAP 10 (5-19); BLOOD UREA NITROGEN 13 mg/dL (7-20); CALCIUM 9.2 mg/dL (8.4-10.2); CARBON DIOXIDE 21 mmol/L (22-30); CHLORIDE 107 mmol/L (98-107); GLUCOSE 95 mg/dL (75-110); POTASSIUM 3.6 mmol/L (3.6-5.0)
[2019-07-07] MEDS ORDERED: INFLUENZA QUAD (6MOS+) 2019-20 VAC 0.5 ML SYR IM ONE (08:00)
[2019-07-07] MEDS: MEROPENEM 500 MG in NORMAL SALINE 50 ML IV SCH ×2 (09:30→21:51)
[2019-07-07] MEDS ORDERED: ACETAMINOPHEN 325 MG SUPP.RECT PR PRN (11:19)
--- NOTE | 2019-07-07 11:47 | PDOC CONSULTATION ---
Consultation Consult Date: 07/07/19 Provider Consulted: SARAH MERRITT Consult reason:: Right second toe cellulitis History of Present Illness Admission Date/PCP: 07/06/19 19:52 FRENCH LONG MD History of Present Illness: RADHA ABDI is a 89 year old female with a 2 to 3-day history of redness associated with pain of the right second toe with skin ulcer admission on the volar aspect of the second toe PIP joint. The patient believes that the skin ulceration is secondary to her orthotic shoes which have been rubbing against the second toe PIP skin. The patient has been suffering from rheumatoid arthritis since age 31, she is currently on methotrexate, and she has diffuse deformity of the joints of digits and toes due to subluxation. An x-ray of the right foot was done emergency room which demonstrated no demineralization, no evidence of osteomyelitis or infection, and subluxation of several joints. Past Medical History Cardiac Medical History: Reports: Hypertension Denies: Coronary Artery Disease, Myocardial Infarction Pulmonary Medical History: Reports: Asthma, Pneumonia - CHILDHOOD Denies: Bronchitis, Chronic Obstructive Pulmonary Disease (COPD) EENT Medical History: Reports: None, Eyes - Glaucoma, macular degeneration, Nose - Allergic rhinitis Denies: Cataracts, Ears - Hearing aids Neurological Medical History: Reports: None Denies: Hemorrhagic CVA, Ischemic CVA, Seizures Endocrine Medical History: Reports: None Denies: Diabetes Mellitus Type 1, Diabetes Mellitus Type 2, Hyperthyroidism, Hypothyroidism, Obesity Renal/ Medical History: Reports: None Denies: Chronic Kidney Disease, Nephrolithiasis Malignancy Medical History: Reports: None, Breast Cancer - Status post right mastectomy [address] Dominique GI Medical History: Reports: None, Other - Cholelithiasis without cholecystitis Denies: Cirrhosis, Crohn's Disease, Hepatitis, Ulcerative Colitis Musculoskeltal Medical History: Reports: Arthritis - Rheumatoid arthritis Denies: Gout Skin Medical History: Reports: None Denies: Eczema, Psoriasis Psychiatric Medical History: Reports: None Denies: Alcohol Dependency, Substance Abuse, Tobacco Dependency Traumatic Medical History: Reports: None Hematology: Denies: Anemia, Bleeding Tendencies Infectious Medical History: Reports: None Past Surgical History Past Surgical History: Reports: Mastectomy - Right, Orthopedic Surgery - bilat eral hip and knee replacements Social History Lives with: Family, Spouse/Significant other Smoking Status: Never Smoker Electronic Cigarette use?: No Frequency of Alcohol Use: None Hx Recreational Drug Use: No Drugs: None Hx Prescription Drug Abuse: No - Advance Directive Resuscitation Status: Full Code Family History Family History: CAD - Mother, DM - Maternal grandmother, Hypertension - Mother. denies: Arthritis, Malignancy Parental Family History Reviewed: No Children Family History Reviewed: No Sibling(s) Family History Reviewed.: No Medication/Allergy Home Medications: Alprazolam [Xanax 0.5 mg Tablet] 0.5 mg PO WSUPPER PRN 07/06/19 Amlodipine Besylate/Benazepril [Lotrel 5-10 mg Capsule] 1 cap PO DAILY 07/06/19 Clopidogrel Bisulfate [Plavix 75 mg Tablet] 75 mg PO DAILY 07/06/19 Ezetimibe [Zetia 10 mg Tablet] 10 mg PO DAILY 07/06/19 Lutein 6 mg PO DAILY 07/06/19 Methotrexate Sodium [Rheumatrex 2.5 mg Tablet] 10 mg PO WE@1000 07/06/19 Montelukast Sodium [Singulair 10 mg Tablet] 10 mg PO DAILY 07/06/19 Oxybutynin Chloride [Oxybutynin Chloride ER] 10 mg PO DAILY 07/06/19 Ranitidine HCl [Heartburn Relief 150] 150 mg PO BID 07/06/19 Vits A,C,E/Zinc/Copper [Savision Tablet] 1 tab PO DAILY 07/06/19 Allergies/Adverse Reactions: cephalexin monohydrate [From Keflex] Allergy (Verified 07/06/19 16:24) Penicillins Allergy (Verified 07/06/19 16:24) sulfamethoxazole [From Bactrim] Allergy (Verified 07/06/19 16:24) trimethoprim [From Bactrim] Allergy (Verified 07/06/19 16:24) Physical Exam Vital Signs: Temp Pulse Resp BP Pulse Ox 97.7 F 65 17 188/64 H 96 07/07/19 08:00 07/07/19 08:00 07/07/19 08:00 07/07/19 08:00 07/07/19 08:00 Intake & Output 07/06/19 07/07/19 07/08/19 06:59 06:59 06:59 Intake Total 300 Balance 300 Weight 50 kg General appearance: PRESENT: no acute distress Head exam: PRESENT: atraumatic, normocephalic Eye exam: PRESENT: EOMI Mouth exam: PRESENT: moist, neck supple Teeth exam: PRESENT: poor dentation Neck exam: PRESENT: full ROM Respiratory exam: PRESENT: clear to auscultation reinier Cardiovascular exam: PRESENT: RRR Pulses: PRESENT: normal dorsalis pedis pul - Right side, +1 pedal pulses bilateral GI/Abdominal exam: PRESENT: soft Rectal exam: PRESENT: deferred Musculoskeletal exam: PRESENT: other - Both hands and feet present with deformity and subluxation of most of the digits and toes; right foot = hammertoe deformity of the second toe ulceration the volar aspect of the PIP joint, diffuse redness of the toe extending to the meta-tarsal phalangeal joint, the forefoot, up to the ankle Neurological exam: PRESENT: alert, awake, oriented to person Psychiatric exam: PRESENT: appropriate affect Skin exam: PRESENT: other - Above Results Laboratory Results: 07/07/19 05:54 07/07/19 05:54 07/06/19 07/06/19 07/07/19 17:10 17:10 05:54 WBC 8.3 7.0 RBC 3.59 L 3.71 L Hgb 12.4 12.9 Hct 36.3 37.5 MCV 101 H 101 H MCH 34.5 H 34.7 H MCHC 34.1 34.3 RDW 14.6 H 14.7 H Plt Count 204 208 Seg Neutrophils % 87.1 H Sodium 137.8 Potassium 3.9 Chloride 106 Carbon Dioxide 23 Anion Gap 9 BUN 17 Creatinine 0.69 Est GFR ( Amer) > 60 Glucose 137 H Calcium 9.3 Magnesium Total Bilirubin 0.6 AST 25 Alkaline Phosphatase 108 Total Protein 7.1 Albumin 3.7 07/07/19 05:54 WBC RBC Hgb Hct MCV MCH MCHC RDW Plt Count Seg Neutrophils % Sodium 137.7 Potassium 3.6 Chloride 107 Carbon Dioxide 21 L Anion Gap 10 BUN 13 Creatinine 0.68 Est GFR ( Amer) > 60 Glucose 95 Calcium 9.2 Magnesium 2.0 Total Bilirubin AST Alkaline Phosphatase Total Protein Albumin Impressions: Foot X-Ray 07/06/19 18:48 IMPRESSION: Marked osteopenia. No obvious osteomyelitis or fractures. Assessment & Plan - Diagnosis (1) Cellulitis of second toe of right foot Is this a current diagnosis for this admission?: Yes - Plan Summary Plan Summary: Assessment: Cellulitis right second toe extending to metatarsal phalangeal joint and ankle Hammertoe deformity right second toe with skin ulceration of the dorsal aspect PIP joint History of rheumatoid arthritis on methotrexate since age 31 Diffuse digit and toe deformities and subluxations secondary to rheumatoid arthritis Plan: Continue IV antibiotics (meropenem and vancomycin) Obtain noncontrast MRI right foot and ankle to rule out osteomyelitis today Surgical therapy of the second toe cellulitis will depend on the MRI findings: If no osteomyelitis is identified, the cellulitis will likely respond to the current antibiotics Should the patient present with osteomyelitis by MRI criteria, we will discuss with the family the possibility of second toe amputation
[2019-07-07] MEDS: DOCUSATE SODIUM 100 MG CAPSULE PO SCH ×3 (12:05→18:04)
[2019-07-07] MEDS: LISINOPRIL 10 MG TABLET PO SCH (12:05)
[2019-07-07] MEDS: MONTELUKAST SODIUM 10 MG TABLET PO SCH (12:05)
[2019-07-07] MEDS: FAMOTIDINE 20 MG TABLET PO SCH ×3 (12:05→21:51)
[2019-07-07] MEDS: AMLODIPINE BESYLATE 5 MG TABLET PO SCH (12:05)
[2019-07-07] MEDS: OXYBUTYNIN CHLORIDE 5 MG TABLET PO SCH ×4 (12:05→21:51)
[2019-07-07] MEDS: CLOPIDOGREL BISULFATE 75 MG TABLET PO SCH (12:06)
--- NOTE | 2019-07-07 17:48 | PDOC PROGRESS REPORT ---
Subjective Progress Note for:: 07/07/19 Subjective:: No acute event overnight. Patient and family report report that the tenderness and redness on the right foot have significantly improved overnight with IV antibiotics. She denies any other acute complaints. Denies chest pain or shortness of breath. Surgery has ordered an MRI to rule out osteomyelitis. Reason For Visit: CELLULITIS WITH LYMPHANGITIS RIGHT FOOT Physical Exam Vital Signs: Temp Pulse Resp BP Pulse Ox 98.6 F 69 19 166/105 H 96 07/07/19 12:33 07/07/19 12:33 07/07/19 12:33 07/07/19 12:33 07/07/19 12:33 Intake & Output 07/06/19 07/07/19 07/08/19 06:59 06:59 06:59 Intake Total 300 50 Balance 300 50 Weight 110 lb 3.698 oz General appearance: PRESENT: no acute distress, well-developed, well-nourished Head exam: PRESENT: atraumatic, normocephalic Eye exam: PRESENT: conjunctiva pink, EOMI, PERRLA. ABSENT: scleral icterus Ear exam: PRESENT: normal external ear exam Mouth exam: PRESENT: moist, tongue midline Neck exam: ABSENT: carotid bruit, JVD, lymphadenopathy, thyromegaly Respiratory exam: PRESENT: clear to auscultation reinier. ABSENT: rales, rhonchi, wheezes Cardiovascular exam: PRESENT: RRR. ABSENT: diastolic murmur, rubs, systolic murmur Pulses: PRESENT: normal dorsalis pedis pul GI/Abdominal exam: PRESENT: normal bowel sounds, soft. ABSENT: distended, guarding, mass, organolmegaly, rebound, tenderness Rectal exam: PRESENT: deferred Extremities exam: PRESENT: other - Not tender and erythematous areas on the right foot, lesions demarcated Neurological exam: PRESENT: alert, awake, oriented to person, oriented to place, oriented to time, oriented to situation, CN II-XII grossly intact. ABSENT: motor sensory deficit Results Laboratory Results: 07/07/19 05:54 07/07/19 05:54 07/06/19 07/06/19 07/07/19 17:10 17:10 05:54 WBC 8.3 7.0 RBC 3.59 L 3.71 L Hgb 12.4 12.9 Hct 36.3 37.5 MCV 101 H 101 H MCH 34.5 H 34.7 H MCHC 34.1 34.3 RDW 14.6 H 14.7 H Plt Count 204 208 Seg Neutrophils % 87.1 H Sodium 137.8 Potassium 3.9 Chloride 106 Carbon Dioxide 23 Anion Gap 9 BUN 17 Creatinine 0.69 Est GFR ( Amer) > 60 Glucose 137 H Calcium 9.3 Magnesium Total Bilirubin 0.6 AST 25 Alkaline Phosphatase 108 Total Protein 7.1 Albumin 3.7 07/07/19 05:54 WBC RBC Hgb Hct MCV MCH MCHC RDW Plt Count Seg Neutrophils % Sodium 137.7 Potassium 3.6 Chloride 107 Carbon Dioxide 21 L Anion Gap 10 BUN 13 Creatinine 0.68 Est GFR ( Amer) > 60 Glucose 95 Calcium 9.2 Magnesium 2.0 Total Bilirubin AST Alkaline Phosphatase Total Protein Albumin Impressions: Foot X-Ray 07/06/19 18:48 IMPRESSION: Marked osteopenia. No obvious osteomyelitis or fractures. Assessment and Plan - Diagnosis (1) Cellulitis Qualifiers: Site of cellulitis: extremity Site of cellulitis of extremity: lower extremity Laterality: right Qualified Code(s): L03.115 - Cellulitis of right lower limb Is this a current diagnosis for this admission?: Yes Plan: Continue IV antibiotics. Surgery has ordered an MRI to rule out osteomyelitis. (2) Rheumatoid arthritis Qualifiers: Rheumatoid arthritis location: multiple sites Rheumatoid factor presence: unspecified presence Qualified Code(s): M06.9 - Rheumatoid arthritis, unspecified Is this a current diagnosis for this admission?: Yes - Time Time Spent with patient: 15-24 minutes
--- NOTE | 2019-07-07 20:53 | RADIOLOGY REPORT (SQ) ---
MR LOWER EXTREMITY WITHOUT IV CONTRAST HISTORY: r/o osteo right 2nd toe or foot; MRI R foot/ankle . COMPARISON: None. TECHNIQUE: Multiplanar, multisequence MR imaging of the right foot was performed without the administration of intravenous gadolinium. FINDINGS: There is minimally decreased T1 signal with increased bone marrow edema within the second proximal phalanx. There is overlying skin thickening and subcutaneous edema in this region. No acute fracture. Moderate hallux IS present. The visualized muscles and tendons are intact. IMPRESSION: Findings suggesting early osteomyelitis of the second proximal phalanx.
[2019-07-07 21:29] LABS: APPEARANCE,URINE SLIGHTLY-CLOUDY; BILIRUBIN,URINE NEGATIVE (NEGATIVE); CALCIUM OXALATE CRYSTALS,URINE MANY /HPF; COLOR,URINE YELLOW; GLUCOSE, URINE NEGATIVE (NEGATIVE); KETONES,URINE NEGATIVE (NEGATIVE); LEUKOCYTE ESTERASE,URINE SMALL (NEGATIVE); NITRITE,URINE POSITIVE (NEGATIVE); PROTEIN,URINE NEGATIVE (NEGATIVE); URINE SPECIFIC GRAVITY 1.012
[2019-07-07] MEDS: VANCOMYCIN HCL 750 MG in DEXTROSE 5%-WATER 250 ML IV SCH (21:45)
[2019-07-08] MEDS ORDERED: GLUCAGON,HUMAN RECOMB 1 MG INJ SUBCUT PRN ×2 (05:03→09:08)
[2019-07-08] MEDS ORDERED: DEXTROSE 40% GEL 15 GM TUBE PO PRN ×4 (05:03→09:08)
[2019-07-08] MEDS ORDERED: DEXTROSE 50%-WATER 25 GM/50 ML DISP.SYRIN IV PRN ×4 (05:03→09:08)
[2019-07-08 08:16] LABS: ANION GAP 13 (5-19); BLOOD UREA NITROGEN 10 mg/dL (7-20); CALCIUM 9.2 mg/dL (8.4-10.2); CARBON DIOXIDE 19 mmol/L (22-30); CHLORIDE 106 mmol/L (98-107); GLUCOSE 104 mg/dL (75-110); POTASSIUM 3.5 mmol/L (3.6-5.0)
[2019-07-08 08:22] LABS: HEMATOCRIT 38.4 % (36.0-47.0); HEMOGLOBIN 13.1 g/dL (12.0-15.5); MEAN CORPUSCULAR HEMOGLOBIN 34.2 pg (27.0-33.4); MEAN CORPUSCULAR HGB CONC 34.1 g/dL (32.0-36.0); MEAN CORPUSCULAR VOLUME 100 fl (80-97); PLATELET COUNT 208 10^3/uL (150-450); RED BLOOD COUNT 3.82 10^6/uL (3.72-5.28); RED CELL DISTRIBUTION WIDTH 14.2 % (11.5-14.0); WHITE BLOOD COUNT 9.6 10^3/uL (4.0-10.5)
--- NOTE | 2019-07-08 09:07 | PDOC PROGRESS REPORT ---
Subjective Progress Note for:: 07/08/19 Subjective:: Patient is comfortable, she has no complaints Reason For Visit: CELLULITIS Physical Exam Vital Signs: Temp Pulse Resp BP Pulse Ox 98.8 F 82 18 150/83 H 99 07/08/19 00:00 07/08/19 08:19 07/08/19 00:00 07/08/19 00:00 07/08/19 00:00 Intake & Output 07/07/19 07/08/19 07/09/19 06:59 06:59 06:59 Intake Total 300 610 Output Total 400 Balance 300 210 Weight 50 kg 48.8 kg General appearance: PRESENT: no acute distress Respiratory exam: PRESENT: clear to auscultation reinier Cardiovascular exam: PRESENT: RRR Pulses: PRESENT: other - Foot = palpable dorsalis pedis; none palpable posterior tibialis GI/Abdominal exam: PRESENT: soft Extremities exam: PRESENT: other - Right foot = deformities of all toes; hammertoe deformity of the second toe with ulceration of the PIP, cellulitis of the second toe extending to the foot up to the ankle Neurological exam: PRESENT: other - Right foot = neurologically intact with maintained sensation and motor function Results Laboratory Results: 07/08/19 07:19 07/08/19 07:19 07/07/19 07/07/19 07/08/19 05:54 06:09 07:19 WBC 9.6 RBC 3.82 Hgb 13.1 Hct 38.4 MCV 100 H MCH 34.2 H MCHC 34.1 RDW 14.2 H Plt Count 208 Sodium Potassium Chloride Carbon Dioxide Anion Gap BUN Creatinine Est GFR ( Amer) Glucose Calcium Magnesium C-Reactive Protein 45.2 H Urine Color YELLOW Urine Appearance SLIGHTLY-CLOUDY Urine pH 6.0 Ur Specific [place] 1.012 Urine Protein NEGATIVE Urine Glucose (UA) NEGATIVE Urine Ketones NEGATIVE Urine Blood SMALL H Urine Nitrite POSITIVE H Ur Leukocyte Esterase SMALL H Urine WBC (Auto) 15 Urine RBC (Auto) 3 07/08/19 07:19 WBC RBC Hgb Hct MCV MCH MCHC RDW Plt Count Sodium 138.1 Potassium 3.5 L Chloride 106 Carbon Dioxide 19 L Anion Gap 13 BUN 10 Creatinine 0.62 Est GFR ( Amer) > 60 Glucose 104 Calcium 9.2 Magnesium 2.0 C-Reactive Protein Urine Color Urine Appearance Urine pH Ur Specific [place] Urine Protein Urine Glucose (UA) Urine Ketones Urine Blood Urine Nitrite Ur Leukocyte Esterase Urine WBC (Auto) Urine RBC (Auto) Impressions: Foot X-Ray 07/06/19 18:48 IMPRESSION: Marked osteopenia. No obvious osteomyelitis or fractures. Lower Extremity MRI 07/07/19 00:00 IMPRESSION: Findings suggesting early osteomyelitis of the second proximal phalanx. Assessment & Plan - Diagnosis (1) Cellulitis of second toe of right foot Is this a current diagnosis for this admission?: Yes (2) osteomyelitis of second toe right foot Is this a current diagnosis for this admission?: Yes - Time Time Spent with patient: 15-24 minutes - Plan Summary Plan Summary: Assessment: Osteomyelitis of the second toe right foot as per MRI done yesterday on July 09, 2018 Right foot neurologically intact Palpable dorsalis pedis Still lingering cellulitis of the second toe extending to the ankle which might prolong surgical wound healing Plan: Possible right second toe amputation by Dr. Dominique tomorrow N.p.o. after midnight Dr. Dominique to discuss the procedure with the patient and her son.
[2019-07-08] MEDS: MEROPENEM 500 MG in NORMAL SALINE 50 ML IV SCH (09:12)
[2019-07-08] MEDS: AMLODIPINE BESYLATE 5 MG TABLET PO SCH (09:18)
[2019-07-08] MEDS: CLOPIDOGREL BISULFATE 75 MG TABLET PO SCH ×2 (09:18→12:38)
[2019-07-08] MEDS: LISINOPRIL 10 MG TABLET PO SCH (09:18)
[2019-07-08] MEDS: OXYBUTYNIN CHLORIDE 5 MG TABLET PO SCH (09:19)
[2019-07-08] MEDS: MONTELUKAST SODIUM 10 MG TABLET PO SCH (09:19)
[2019-07-08] MEDS: FAMOTIDINE 20 MG TABLET PO SCH (09:38)
[2019-07-08] MEDS: DOCUSATE SODIUM 100 MG CAPSULE PO SCH ×2 (09:58→17:37)
[2019-07-08] MEDS ORDERED: MEROPENEM 1 GM in NORMAL SALINE 50 ML IV SCH (10:00)
[2019-07-08] MEDS ORDERED: METHOTREXATE SODIUM 2.5 MG TABLET PO SCH (10:00)
[2019-07-08] MEDS: POTASSI CL 20 MEQ/50 ML RIDER 20 MEQ/50 ML RTUPB IV SCH ×2 (11:18→12:46)
[2019-07-08] MEDS: METHOTREXATE SODIUM 2.5 MG TABLET PO SCH (12:38)
--- NOTE | 2019-07-08 13:09 | EKG REPORT ---
SEVERITY:- ABNORMAL ECG - SINUS RHYTHM PROBABLE LEFT ATRIAL ABNORMALITY LEFT BUNDLE BRANCH BLOCK INFERIOR Q WAVES, POSSIBLY DUE TO LBBB : Confirmed by: Christiano Zurita MD 08-Jul-2019 13:07:47
[2019-07-08] MEDS ORDERED: POTASSIUM CHLORIDE 20 MEQ PACKET PO ONE (14:00)
[2019-07-08] MEDS: EZETIMIBE 10 MG TABLET PO SCH (14:10)
--- NOTE | 2019-07-08 15:37 | PDOC PROGRESS REPORT ---
Subjective Progress Note for:: 07/08/19 Subjective:: 07/07: Patient and family report report that the tenderness and redness on the right foot have significantly improved overnight with IV antibiotics. She denies any other acute complaints. Denies chest pain or shortness of breath. Surgery has ordered an MRI to rule out osteomyelitis. 07/08: No acute event overnight. The redness improved yesterday morning but is a bout the same from yesterday. MRI shows osteomyelitis and surgery has scheduled patient for toe amputation tomorrow. Reason For Visit: CELLULITIS Physical Exam Vital Signs: Temp Pulse Resp BP Pulse Ox 98.6 F 73 16 132/68 H 96 07/08/19 12:31 07/08/19 14:28 07/08/19 14:28 07/08/19 12:31 07/08/19 14:28 Intake & Output 07/07/19 07/08/19 07/09/19 06:59 06:59 06:59 Intake Total 300 610 50 Output Total 400 Balance 300 210 50 Weight 110 lb 3.698 oz 107 lb 9.369 oz General appearance: PRESENT: no acute distress, well-developed, well-nourished Head exam: PRESENT: atraumatic, normocephalic Eye exam: PRESENT: conjunctiva pink, EOMI, PERRLA. ABSENT: scleral icterus Ear exam: PRESENT: normal external ear exam Mouth exam: PRESENT: moist, tongue midline Neck exam: ABSENT: carotid bruit, JVD, lymphadenopathy, thyromegaly Respiratory exam: PRESENT: clear to auscultation reinier. ABSENT: rales, rhonchi, wheezes Cardiovascular exam: PRESENT: RRR. ABSENT: diastolic murmur, rubs, systolic murmur Pulses: PRESENT: normal dorsalis pedis pul GI/Abdominal exam: PRESENT: normal bowel sounds, soft. ABSENT: distended, guar ding, mass, organolmegaly, rebound, tenderness Rectal exam: PRESENT: deferred Neurological exam: PRESENT: alert, awake, oriented to person, oriented to place, oriented to time, CN II-XII grossly intact. ABSENT: motor sensory deficit Results Laboratory Results: 07/08/19 07:19 07/08/19 07:19 07/07/19 07/07/19 07/08/19 05:54 06:09 07:19 WBC 9.6 RBC 3.82 Hgb 13.1 Hct 38.4 MCV 100 H MCH 34.2 H MCHC 34.1 RDW 14.2 H Plt Count 208 Sodium Potassium Chloride Carbon Dioxide Anion Gap BUN Creatinine Est GFR ( Amer) Glucose Calcium Magnesium C-Reactive Protein 45.2 H Urine Color YELLOW Urine Appearance SLIGHTLY-CLOUDY Urine pH 6.0 Ur Specific [place] 1.012 Urine Protein NEGATIVE Urine Glucose (UA) NEGATIVE Urine Ketones NEGATIVE Urine Blood SMALL H Urine Nitrite POSITIVE H Ur Leukocyte Esterase SMALL H Urine WBC (Auto) 15 Urine RBC (Auto) 3 07/08/19 07:19 WBC RBC Hgb Hct MCV MCH MCHC RDW Plt Count Sodium 138.1 Potassium 3.5 L Chloride 106 Carbon Dioxide 19 L Anion Gap 13 BUN 10 Creatinine 0.62 Est GFR ( Amer) > 60 Glucose 104 Calcium 9.2 Magnesium 2.0 C-Reactive Protein Urine Color Urine Appearance Urine pH Ur Specific [place] Urine Protein Urine Glucose (UA) Urine Ketones Urine Blood Urine Nitrite Ur Leukocyte Esterase Urine WBC (Auto) Urine RBC (Auto) 07/06/19 18:55 Toe - Right Second Gram Stain - Final 07/06/19 18:55 Toe - Right Second Wound Culture - Final Mrsa (Meth Resis Staph Aureus) Impressions: Foot X-Ray 07/06/19 18:48 IMPRESSION: Marked osteopenia. No obvious osteomyelitis or fractures. Lower Extremity MRI 07/07/19 00:00 IMPRESSION: Findings suggesting early osteomyelitis of the second proximal phalanx. Assessment and Plan - Diagnosis (1) Osteomyelitis Qualifiers: Osteomyelitis location: foot Laterality: right Is this a current diagnosis for this admission?: Yes Plan: MRI shows osteomyelitis and surgery has scheduled patient for toe amputation tomorrow. (2) Cellulitis Qualifiers: Site of cellulitis: extremity Site of cellulitis of extremity: lower extremity Laterality: right Qualified Code(s): L03.115 - Cellulitis of right lower limb Is this a current diagnosis for this admission?: Yes Plan: Continue IV antibiotics. (3) Rheumatoid arthritis Qualifiers: Rheumatoid arthritis location: multiple sites Rheumatoid factor presence: unspecified presence Qualified Code(s): M06.9 - Rheumatoid arthritis, un specified Is this a current diagnosis for this admission?: Yes (4) HTN (hypertension) Is this a current diagnosis for this admission?: Yes Plan: Home meds resumed. - Time Time Spent with patient: 25-34 minutes
[2019-07-08] MEDS ORDERED: OXYBUTYNIN CHLORIDE 5 MG TABLET PO SCH (18:00)
[2019-07-08] MEDS ORDERED: FAMOTIDINE 20 MG TABLET PO SCH (18:00)
[2019-07-08] MEDS ORDERED: RANITIDINE HCL 150 MG PO SCH (18:00)
[2019-07-08] MEDS: VANCOMYCIN HCL 750 MG in DEXTROSE 5%-WATER 250 ML IV SCH (21:06)
[2019-07-08] MEDS: ALPRAZOLAM 0.5 MG TABLET PO PRN (21:09)
[2019-07-09] MEDS ORDERED: CALCIUM GLUCONATE 1000 MG/10 ML INJ IV ONE (05:00)
[2019-07-09] MEDS: NORMAL SALINE 1000 ML 1,000 ML IV PRN (05:03)
[2019-07-09 06:14] LABS: HEMATOCRIT 40.5 % (36.0-47.0); HEMOGLOBIN 13.5 g/dL (12.0-15.5); MEAN CORPUSCULAR HEMOGLOBIN 34.1 pg (27.0-33.4); MEAN CORPUSCULAR HGB CONC 33.5 g/dL (32.0-36.0); MEAN CORPUSCULAR VOLUME 102 fl (80-97); PLATELET COUNT 200 10^3/uL (150-450); RED BLOOD COUNT 3.97 10^6/uL (3.72-5.28); RED CELL DISTRIBUTION WIDTH 14.7 % (11.5-14.0)
[2019-07-09 06:38] LABS: ANION GAP 9 (5-19); BLOOD UREA NITROGEN 13 mg/dL (7-20); CALCIUM 9.2 mg/dL (8.4-10.2); CARBON DIOXIDE 24 mmol/L (22-30); CHLORIDE 106 mmol/L (98-107); GLUCOSE 93 mg/dL (75-110); POTASSIUM 4.5 mmol/L (3.6-5.0)
--- NOTE | 2019-07-09 09:33 | PDOC PROGRESS REPORT ---
Subjective Progress Note for:: 07/09/19 Subjective:: Patient has no complaints. Reason For Visit: CELLULITIS,BACTEREMIA Physical Exam Vital Signs: Temp Pulse Resp BP Pulse Ox 97.7 F 78 24 H 184/95 H 98 07/09/19 07:38 07/09/19 07:38 07/09/19 07:38 07/09/19 07:38 07/09/19 07:38 Intake & Output 07/08/19 07/09/19 07/10/19 06:59 06:59 06:59 Intake Total 610 910 Output Total 400 0 Balance 210 910 Weight 48.8 kg 49.7 kg General appearance: PRESENT: no acute distress Musculoskeletal exam: PRESENT: other - Right foot examined. Erythema dorsum foot diminished; no active drainage from the second toe. Palpable dorsalis pedis pulse. Results Laboratory Results: 07/09/19 05:59 07/09/19 05:59 07/08/19 07/09/19 07/09/19 16:41 05:59 05:59 WBC 8.0 RBC 3.97 Hgb 13.5 Hct 40.5 MCV 102 H MCH 34.1 H MCHC 33.5 RDW 14.7 H Plt Count 200 Sodium 138.7 Potassium 4.6 D 4.5 Chloride 106 Carbon Dioxide 24 Anion Gap 9 BUN 13 Creatinine 1.04 Est GFR ( Amer) > 60 Glucose 93 Calcium 9.2 Magnesium 2.1 07/06/19 18:55 Toe - Right Second Gram Stain - Final 07/06/19 18:55 Toe - Right Second Wound Culture - Final Mrsa (Meth Resis Staph Aureus) Impressions: Foot X-Ray 07/06/19 18:48 IMPRESSION: Marked osteopenia. No obvious osteomyelitis or fractures. Lower Extremity MRI 07/07/19 00:00 IMPRESSION: Findings suggesting early osteomyelitis of the second proximal phalanx. Assessment & Plan - Diagnosis (1) Cellulitis of second toe of right foot Is this a current diagnosis for this admission?: Yes Plan: Impression: Localized osteomyelitis of the proximal right second digit with soft tissue infection, clinically improved with intravenous antibiotics. Patient with multiple comorbidities including chronically deformed ankle, chronic skin changes, rheumatoid arthritis, and immunosuppressive therapy. Arterial blood supply dorsum right foot is intact based on palpable dorsalis pedis pulse, despite atherosclerotic changes to the infrageniculate vessels based on yesterday's arterial duplex study. recommendations 1. As an extension of discussion from Saturday, July 08 with patient, and patient's family, I have offered right second toe amputation with possible delayed primary closure, versus packing wound open for the management of acute osteomyelitis of the right second toe with soft tissue infection. Patient and family were instructed this may not heal, and additional intervention such as amputation of the foot may be required in the future. 2. I discussed the operative plan, that his right second toe amputation under LMAC anesthesia with Dr. Gordon, anesthesiologist, who agrees with the approach. We will set this up for later today. (2) Osteomyelitis Qualifiers: Osteomyelitis location: foot Laterality: right Is this a current diagnosis for this admission?: Yes (3) Rheumatoid arthritis Qualifiers: Rheumatoid arthritis location: multiple sites Rheumatoid factor presence: unspecified presence Qualified Code(s): M06.9 - Rheumatoid arthritis, unspecified Is this a current diagnosis for this admission?: Yes - Time Time Spent with patient: 15-24 minutes
[2019-07-09] MEDS ORDERED: LIDOCAINE 1% INJ-PF (10 MG/ML) 30 ML SDV ONE (09:49)
[2019-07-09] MEDS ORDERED: VITS A C E PO SCH (10:00)
[2019-07-09] MEDS ORDERED: MONTELUKAST SODIUM 10 MG TABLET PO SCH (10:00)
[2019-07-09] MEDS ORDERED: LUTEIN 6 MG PO SCH (10:00)
[2019-07-09] MEDS ORDERED: (PENDING PHARMACY ID) (Brinzolamide/Brimonidine Tart [Simbrinza 1%-0.2% Eye Drops] 1 DROP) OU SCH (10:00)
[2019-07-09] MEDS ORDERED: ZINC PO SCH (10:00)
[2019-07-09] MEDS ORDERED: COPPER PO SCH (10:00)
[2019-07-09] MEDS ORDERED: (PENDING PHARMACY ID) (Oxybutynin Chloride [Oxybutynin Chloride Er] 10 MG) PO SCH (10:00)
[2019-07-09] MEDS: DOCUSATE SODIUM 100 MG CAPSULE PO SCH ×2 (10:41→17:33)
[2019-07-09] MEDS: PREDNISOLONE ACETATE 1% OPH SUSP 5 ML OU SCH (10:41)
[2019-07-09] MEDS: DITROPAN 10 MG PO SCH (10:41)
[2019-07-09] MEDS: AMLODIPINE BESYLATE 5 MG TABLET PO SCH (10:41)
[2019-07-09] MEDS: BENAZEPRIL HCL 10 MG TABLET PO SCH (10:41)
[2019-07-09] MEDS: CLOPIDOGREL BISULFATE 75 MG TABLET PO SCH (10:41)
[2019-07-09] MEDS: MONTELUKAST SODIUM 10 MG TABLET PO SCH (10:42)
[2019-07-09] MEDS: CETIRIZINE 10 MG TABLET PO SCH (10:42)
[2019-07-09] MEDS: EZETIMIBE 10 MG TABLET PO SCH (10:42)
[2019-07-09] MEDS ORDERED: PROPOFOL INJ 200 MG/20 ML VIAL IV ONE (10:46)
[2019-07-09] MEDS ORDERED: MIDAZOLAM 2 MG/2 ML INJ ONE (10:46)
[2019-07-09] MEDS ORDERED: ONDANSETRON HCL INJ/PF 4 MG/2 ML SDV ONE (10:46)
[2019-07-09] MEDS ORDERED: FENTANYL CITRATE INJ/PF 100 MCG/2 ML AMPUL ONE (10:46)
[2019-07-09] MEDS: HYDRALAZINE HCL INJ/PF 20 MG/1 ML SDV IV PRN (11:06)
--- NOTE | 2019-07-09 13:11 | Operative Report ---
Operative Report DATE OF SURGERY: 07/09/19 PREOPERATIVE DIAGNOSIS: 1. Osteomyelitis of the right second toe. 2. Overgr own toenails. 3. Rheumatoid arthritis. 4. Multiple gross deformities of the right lower extremity POSTOPERATIVE DIAGNOSIS: Same OPERATION: 1. Right second toe amputation including second metatarsal head. 2. Suture placement right foot for anticipated delayed primary closure. 3. Trimming of toenails 3, 4 and 5 SURGEON: JIL SANCHEZ ANESTHESIA: LMAC TISSUE REMOVED OR ALTERED: Right second toe COMPLICATIONS: None INTRAOPERATIVE FINDINGS: See below PROCEDURE: Patient was seen in preop holding her with right foot was marked. She was then taken the main operating room where LMAC anesthesia was induced to a newly established right upper extremity IV. The left upper extremity IV will be subsequently removed. The right foot was isolated, prepped and draped sterile fashion. Surgical plan and surgical timeout were conducted. The findings were significant for erythematous right second toe with open wound over the distal phalangeal joint. The base of the right second toe was anesthetized with 1% plain and a cane. The toe was amputated at the base in a circumferential fashion right at the webspace. The second metatarsal head was treated using Tony. Digital arteries were patent and were cauterized for control. The surrounding skin was viable, with only minimal erythema of the dorsum of the foot extending laterally. I placed 5 interrupted 3-0 Ethilon sutures for anticipated delayed primary closure in a vertical orientation. A 2 x 5 cm portion of Xeroform was packed into the amputation cavity. Toenails 3 4 and 5 are amputated with a small bone damage cutter to the hyponychium. The Ethilon sutures were left untied, and mated with small hemoclips. 4 x 4's were installed between the toes and a Kerlix wrapping applied. Patient tolerated the procedure well. She was taken to recovery room in stable condition.
--- NOTE | 2019-07-09 14:45 | XCELERA REPORT ---
[address] [address] Lower Extremity Arterial Evaluation Name: RADHA ABDI Age: 89 yrs Gender: Female : 1930 Patient Status: Inpatient Patient Location: [facility]^A Study Date: 07/08/2019 05:26 PM Procedure: A color flow and duplex scan of the lower extremity arteries was performed on the right with velocity and waveform anaylsis. Reason For Study: DECREASED PULSES RT FOOT, CELLULITIS Ordering Physician: JIL SANCHEZ Performed By: Geneva Guardado Measurements and Calculations Right Left UNIT NURSE PSV 137.1 cm/sec Prox PFA PSV 63.7 cm/sec Prox SFA PSV 95.9 cm/sec Mid SFA PSV 189.7 cm/sec Dist SFA PSV 168.5 cm/sec Prox Pop A PSV 81.0 cm/sec Mid DARRYN PSV 68.3 cm/sec Mid DAT[employer]ASES SOFTWARE CONSULTANT PSV 36.1 cm/sec Milad Pedis PSV -115.2 -39.6 cm/sec Right Side Arterial Evaluation Normal velocity, some broadening, and triphasic waveforms noted from the Common Femoral artery to the infrageniculate vessels . Ankle Brachial index not done. Left Side Arterial Evaluation Brief look at the Dorsalis Pedis only, low normal, biphasic. Interpretation Summary No hemodynamically significant lesions in the right lower extremity only, on duplex imaging, at rest. : JIL SANCHEZ > Gonzalo Sawyer
--- NOTE | 2019-07-09 15:12 | PDOC PROGRESS REPORT ---
Subjective Progress Note for:: 07/09/19 Subjective:: 07/07: Patient and family report report that the tenderness and redness on the right foot have significantly improved overnight with IV antibiotics. She denies any other acute complaints. Denies chest pain or shortness of breath. Surgery has ordered an MRI to rule out osteomyelitis. 07/08: No acute event overnight. The redness improved yesterday morning but is a bout the same from yesterday. MRI shows osteomyelitis and surgery has scheduled patient for toe amputation tomorrow. 07/09: Patient had a transient episode of confusion last night. This morning, she appears comfortable and is AO x 4. She denies acute complaints. The redness on the right foot has improved compared to yesterday. She is going for a toe amputation soon for her osteomyelitis. Reason For Visit: CELLULITIS,BACTEREMIA Physical Exam Vital Signs: Temp Pulse Resp BP Pulse Ox 97.5 F 63 24 H 133/63 H 96 07/09/19 11:18 07/09/19 11:18 07/09/19 11:18 07/09/19 11:18 07/09/19 11:18 Intake & Output 07/08/19 07/09/19 07/10/19 06:59 06:59 06:59 Intake Total 610 910 Output Total 400 0 Balance 210 910 Weight 107 lb 9.369 oz 109 lb 9.116 oz General appearance: PRESENT: no acute distress, well-developed, well-nourished Head exam: PRESENT: atraumatic, normocephalic Eye exam: PRESENT: conjunctiva pink, EOMI, PERRLA. ABSENT: scleral icterus Ear exam: PRESENT: normal external ear exam Mouth exam: PRESENT: moist, tongue midline Neck exam: ABSENT: carotid bruit, JVD, lymphadenopathy, thyromegaly Respiratory exam: PRESENT: clear to auscultation reinier. ABSENT: rales, rhonchi, wheezes Cardiovascular exam: PRESENT: RRR. ABSENT: diastolic murmur, rubs, systolic murmur Pulses: PRESENT: normal dorsalis pedis pul GI/Abdominal exam: PRESENT: normal bowel sounds, soft. ABSENT: distended, guarding, mass, organolmegaly, rebound, tenderness Rectal exam: PRESENT: deferred Extremities exam: PRESENT: other - The redness on the right foot has improved compared to yesterday. Neurological exam: PRESENT: alert, awake, oriented to person, oriented to place, oriented to time, oriented to situation, CN II-XII grossly intact. ABSENT: motor sensory deficit Results Laboratory Results: 07/09/19 05:59 07/09/19 05:59 07/08/19 07/09/19 07/09/19 16:41 05:59 05:59 WBC 8.0 RBC 3.97 Hgb 13.5 Hct 40.5 MCV 102 H MCH 34.1 H MCHC 33.5 RDW 14.7 H Plt Count 200 Sodium 138.7 Potassium 4.6 D 4.5 Chloride 106 Carbon Dioxide 24 Anion Gap 9 BUN 13 Creatinine 1.04 Est GFR ( Amer) > 60 Glucose 93 Calcium 9.2 Magnesium 2.1 07/06/19 18:22 Blood Blood Culture - Final Staphylococcus Epidermidis 07/06/19 18:55 Toe - Right Second Gram Stain - Final 07/06/19 18:55 Toe - Right Second Wound Culture - Final Mrsa (Meth Resis Staph Aureus) Impressions: Foot X-Ray 07/06/19 18:48 IMPRESSION: Marked osteopenia. No obvious osteomyelitis or fractures. Lower Extremity MRI 07/07/19 00:00 IMPRESSION: Findings suggesting early osteomyelitis of the second proximal phalanx. Assessment and Plan - Diagnosis (1) Osteomyelitis Qualifiers: Osteomyelitis location: foot Laterality: right Is this a current diagnosis for this admission?: Yes Plan: The redness on the right foot has improved compared to yesterday. She is going for a toe amputation soon for her osteomyelitis. (2) Cellulitis Qualifiers: Site of cellulitis: extremity Site of cellulitis of extremity: lower extremity Laterality: right Qualified Code(s): L03.115 - Cellulitis of right lower limb Is this a current diagnosis for this admission?: Yes Plan: Continue vancomycin. (3) Rheumatoid arthritis Qualifiers: Rheumatoid arthritis location: multiple sites Rheumatoid factor presence: unspecified presence Qualified Code(s): M06.9 - Rheumatoid arthritis, unspecified Is this a current diagnosis for this admission?: Yes (4) HTN (hypertension) Is this a current diagnosis for this admission?: Yes Plan: Home meds resumed. - Time Time Spent with patient: 25-34 minutes
[2019-07-09 21:23] LABS: VANCOMYCIN,TROUGH 11.8 ug/mL (5.0-20.0)
--- NOTE | 2019-07-10 08:31 | PDOC PROGRESS REPORT ---
Subjective Progress Note for:: 07/10/19 Reason For Visit: CELLULITIS,BACTEREMIA post op rt 2nd toe amp Physical Exam Vital Signs: Temp Pulse Resp BP Pulse Ox 99.3 F 86 20 154/61 H 95 07/10/19 00:00 07/10/19 00:00 07/10/19 00:00 07/10/19 00:00 07/10/19 00:00 Intake & Output 07/09/19 07/10/19 07/11/19 06:59 06:59 06:59 Intake Total 910 320 Output Total 0 10 Balance 910 310 Weight 49.7 kg 50 kg General appearance: PRESENT: no acute distress Head exam: PRESENT: normocephalic Eye exam: PRESENT: EOMI Ear exam: PRESENT: normal external ear exam Mouth exam: PRESENT: moist Teeth exam: PRESENT: poor dentation Neck exam: PRESENT: full ROM Respiratory exam: PRESENT: clear to auscultation reinier Cardiovascular exam: PRESENT: RRR Pulses: PRESENT: normal radial pulses, normal femoral pulses Vascular exam: PRESENT: normal capillary refill GI/Abdominal exam: PRESENT: soft Rectal exam: PRESENT: deferred Extremities exam: PRESENT: full ROM, other - rt foot dressing dry, Neurological exam: PRESENT: alert, awake Skin exam: PRESENT: dry Results Laboratory Results: 07/09/19 05:59 07/09/19 05:59 07/06/19 18:22 Blood Blood Culture - Final Staphylococcus Epidermidis Impressions: Foot X-Ray 07/06/19 18:48 IMPRESSION: Marked osteopenia. No obvious osteomyelitis or fractures. Lower Extremity MRI 07/07/19 00:00 IMPRESSION: Findings suggesting early osteomyelitis of the second proximal phalanx. Assessment & Plan - Diagnosis (1) Cellulitis of second toe of right foot Is this a current diagnosis for this admission?: Yes - Time Time Spent with patient: 15-24 minutes - Plan Summary Plan Summary: will start wet to dry dressing changes today physical rx
[2019-07-10] MEDS: DITROPAN 10 MG PO SCH (10:48)
[2019-07-10] MEDS: DOCUSATE SODIUM 100 MG CAPSULE PO SCH ×2 (10:49→17:57)
[2019-07-10] MEDS: BENAZEPRIL HCL 10 MG TABLET PO SCH (10:49)
[2019-07-10] MEDS: CLOPIDOGREL BISULFATE 75 MG TABLET PO SCH (10:49)
[2019-07-10] MEDS: CETIRIZINE 10 MG TABLET PO SCH (10:49)
[2019-07-10] MEDS: AMLODIPINE BESYLATE 5 MG TABLET PO SCH (10:49)
[2019-07-10] MEDS: PREDNISOLONE ACETATE 1% OPH SUSP 5 ML OU SCH (10:50)
[2019-07-10] MEDS: MONTELUKAST SODIUM 10 MG TABLET PO SCH (10:50)
[2019-07-10] MEDS: EZETIMIBE 10 MG TABLET PO SCH (10:51)
[2019-07-10] MEDS ORDERED: ACETAMINOPHEN INJ/PF 1000 MG/100 ML SDV IV SCH (12:00)
[2019-07-10] MEDS ORDERED: ACETAMINOPHEN 1,000 MG/100 ML RTUPB IV SCH (12:00)
--- NOTE | 2019-07-10 15:26 | PDOC PROGRESS REPORT ---
Subjective Progress Note for:: 07/10/19 Subjective:: 07/07: Patient and family report report that the tenderness and redness on the right foot have significantly improved overnight with IV antibiotics. She denies any other acute complaints. Denies chest pain or shortness of breath. Surgery has ordered an MRI to rule out osteomyelitis. 07/08: No acute event overnight. The redness improved yesterday morning but is a bout the same from yesterday. MRI shows osteomyelitis and surgery has scheduled patient for toe amputation tomorrow. 07/09: Patient had a transient episode of confusion last night. This morning, she appears comfortable and is AO x 4. She denies acute complaints. The redness on the right foot has improved compared to yesterday. She is going for a toe amputation soon for her osteomyelitis. 07/10: Patient underwent right toe amputation yesterday. No acute event overnight. No fever or chills. No agitation or confusion overnight. She denies acute complaints. Reason For Visit: CELLULITIS,BACTEREMIA Physical Exam Vital Signs: Temp Pulse Resp BP Pulse Ox 98.6 F 96 20 150/90 H 94 07/10/19 08:00 07/10/19 08:00 07/10/19 08:00 07/10/19 08:00 07/10/19 08:00 Intake & Output 07/09/19 07/10/19 07/11/19 06:59 06:59 06:59 Intake Total 910 320 100 Output Total 0 10 Balance 910 310 100 Weight 109 lb 9.116 oz 110 lb 3.698 oz General appearance: PRESENT: no acute distress, well-developed, well-nourished Head exam: PRESENT: atraumatic, normocephalic Eye exam: PRESENT: conjunctiva pink, EOMI, PERRLA. ABSENT: scleral icterus Ear exam: PRESENT: normal external ear exam Mouth exam: PRESENT: moist, tongue midline Neck exam: ABSENT: carotid bruit, JVD, lymphadenopathy, thyromegaly Respiratory exam: PRESENT: clear to auscultation reinier. ABSENT: rales, rhonchi, wheezes Cardiovascular exam: PRESENT: RRR. ABSENT: diastolic murmur, rubs, systolic murmur Pulses: PRESENT: normal dorsalis pedis pul GI/Abdominal exam: PRESENT: normal bowel sounds, soft. ABSENT: distended, guarding, mass, organolmegaly, rebound, tenderness Rectal exam: PRESENT: deferred Extremities exam: PRESENT: other - dressing over right foot Neurological exam: PRESENT: alert, awake, oriented to person, oriented to place, oriented to time, oriented to situation, CN II-XII grossly intact. ABSENT: motor sensory deficit Results Laboratory Results: 07/09/19 05:59 07/09/19 05:59 07/06/19 18:22 Blood Blood Culture - Final Staphylococcus Epidermidis Impressions: Foot X-Ray 07/06/19 18:48 IMPRESSION: Marked osteopenia. No obvious osteomyelitis or fractures. Lower Extremity MRI 07/07/19 00:00 IMPRESSION: Findings suggesting early osteomyelitis of the second proximal phalanx. Assessment and Plan - Diagnosis (1) Osteomyelitis Qualifiers: Osteomyelitis location: foot Laterality: right Is this a current diagnosis for this admission?: Yes Plan: S/P toe amputation on 07/09. (2) Cellulitis Qualifiers: Site of cellulitis: extremity Site of cellulitis of extremity: lower extremity Laterality: right Qualified Code(s): L03.115 - Cellulitis of right lower limb Is this a current diagnosis for this admission?: Yes Plan: Improving. Continue vancomycin. (3) Rheumatoid arthritis Qualifiers: Rheumatoid arthritis location: multiple sites Rheumatoid factor presence: unspecified presence Qualified Code(s): M06.9 - Rheumatoid arthritis, unspecified Is this a current diagnosis for this admission?: Yes (4) HTN (hypertension) Is this a current diagnosis for this admission?: Yes Plan: Home meds resumed. - Time Time Spent with patient: 15-24 minutes
[2019-07-10] MEDS: ACETAMINOPHEN 325 MG TABLET PO SCH ×2 (17:56→20:57)
[2019-07-10] MEDS: VANCOMYCIN HCL 1,000 MG in DEXTROSE 5%-WATER 250 ML IV SCH (17:58)
[2019-07-10] MEDS: VANCOMYCIN HCL 750 MG in DEXTROSE 5%-WATER 250 ML IV SCH (18:54)
[2019-07-10] MEDS: NORMAL SALINE 1000 ML 1,000 ML IV PRN (20:59)
[2019-07-11] MEDS: ACETAMINOPHEN 325 MG TABLET PO SCH ×7 (01:47→23:38)
[2019-07-11] MEDS: HYDRALAZINE HCL INJ/PF 20 MG/1 ML SDV IV PRN (08:39)
[2019-07-11] MEDS: NORMAL SALINE 1000 ML 1,000 ML IV PRN ×2 (08:45→23:40)
[2019-07-11] MEDS: PREDNISOLONE ACETATE 1% OPH SUSP 5 ML OU SCH (09:25)
[2019-07-11] MEDS: CLOPIDOGREL BISULFATE 75 MG TABLET PO SCH (09:59)
[2019-07-11] MEDS: CETIRIZINE 10 MG TABLET PO SCH (09:59)
[2019-07-11] MEDS: AMLODIPINE BESYLATE 5 MG TABLET PO SCH (09:59)
[2019-07-11] MEDS: DOCUSATE SODIUM 100 MG CAPSULE PO SCH ×2 (09:59→17:25)
[2019-07-11] MEDS: BENAZEPRIL HCL 10 MG TABLET PO SCH (10:00)
[2019-07-11] MEDS: EZETIMIBE 10 MG TABLET PO SCH (10:00)
[2019-07-11] MEDS: MONTELUKAST SODIUM 10 MG TABLET PO SCH (10:00)
[2019-07-11] MEDS: DITROPAN 10 MG PO SCH (10:01)
--- NOTE | 2019-07-11 11:05 | PDOC PROGRESS REPORT ---
Subjective Progress Note for:: 07/11/19 Subjective:: 07/07: Patient and family report report that the tenderness and redness on the right foot have significantly improved overnight with IV antibiotics. She denies any other acute complaints. Denies chest pain or shortness of breath. Surgery has ordered an MRI to rule out osteomyelitis. 07/08: No acute event overnight. The redness improved yesterday morning but is a bout the same from yesterday. MRI shows osteomyelitis and surgery has scheduled patient for toe amputation tomorrow. 07/09: Patient had a transient episode of confusion last night. This morning, she appears comfortable and is AO x 4. She denies acute complaints. The redness on the right foot has improved compared to yesterday. She is going for a toe amputation soon for her osteomyelitis. 07/10: Patient underwent right toe amputation yesterday. No acute event overnight. No fever or chills. No agitation or confusion overnight. She denies acute complaints. 07/11: No acute event overnight. No fever or chills. She is doing well. She denies acute complaints. Awaiting for final intraoperative culture results. Await reevaluation by PT. Reason For Visit: CELLULITIS,BACTEREMIA Physical Exam Vital Signs: Temp Pulse Resp BP Pulse Ox 97.3 F 79 16 195/85 H 96 07/11/19 08:00 07/11/19 08:00 07/11/19 08:00 07/11/19 08:00 07/11/19 08:00 Intake & Output 07/10/19 07/11/19 07/12/19 06:59 06:59 06:59 Intake Total 320 2420 212 Output Total 10 250 Balance 310 2170 212 Weight 110 lb 3.698 oz 110 lb 10.753 oz General appearance: PRESENT: no acute distress, well-developed, well-nourished Head exam: PRESENT: atraumatic, normocephalic Eye exam: PRESENT: conjunctiva pink, EOMI, PERRLA. ABSENT: scleral icterus Ear exam: PRESENT: normal external ear exam Mouth exam: PRESENT: moist, tongue midline Neck exam: ABSENT: carotid bruit, JVD, lymphadenopathy, thyromegaly Respiratory exam: PRESENT: clear to auscultation reinier. ABSENT: rales, rhonchi, wheezes Cardiovascular exam: PRESENT: RRR. ABSENT: diastolic murmur, rubs, systolic murmur GI/Abdominal exam: PRESENT: normal bowel sounds, soft. ABSENT: distended, guarding, mass, organolmegaly, rebound, tenderness Rectal exam: PRESENT: deferred Musculoskeletal exam: PRESENT: other - dressing on right foot Neurological exam: PRESENT: alert, awake, oriented to person, oriented to place, oriented to time, oriented to situation, CN II-XII grossly intact. ABSENT: motor sensory deficit Results Laboratory Results: 07/09/19 05:59 07/09/19 05:59 Impressions: Foot X-Ray 07/06/19 18:48 IMPRESSION: Marked osteopenia. No obvious osteomyelitis or fractures. Lower Extremity MRI 07/07/19 00:00 IMPRESSION: Findings suggesting early osteomyelitis of the second proximal phalanx. Assessment and Plan - Diagnosis (1) Osteomyelitis Qualifiers: Osteomyelitis location: foot Laterality: right Is this a current diagnosis for this admission?: Yes Plan: S/P toe amputation on 07/09. 07/11: Awaiting for final intraoperative culture results. Await reevaluation by PT. (2) Cellulitis Qualifiers: Site of cellulitis: extremity Site of cellulitis of extremity: lower extremity Laterality: right Qualified Code(s): L03.115 - Cellulitis of right lower limb Is this a current diagnosis for this admission?: Yes Plan: Improving. Continue vancomycin. (3) Rheumatoid arthritis Qualifiers: Rheumatoid arthritis location: multiple sites Rheumatoid factor presence: unspecified presence Qualified Code(s): M06.9 - Rheumatoid arthritis, unspecified Is this a current diagnosis for this admission?: Yes (4) HTN (hypertension) Is this a current diagnosis for this admission?: Yes Plan: Home meds resumed.
[2019-07-11 11:54] LABS: ANION GAP 11 (5-19); BLOOD UREA NITROGEN 16 mg/dL (7-20); CARBON DIOXIDE 18 mmol/L (22-30); CHLORIDE 109 mmol/L (98-107); GLUCOSE 119 mg/dL (75-110); POTASSIUM 3.5 mmol/L (3.6-5.0)
[2019-07-11] MEDS: VANCOMYCIN HCL 1,000 MG in DEXTROSE 5%-WATER 250 ML IV SCH (17:25)
--- NOTE | 2019-07-11 17:57 | PDOC PROGRESS REPORT ---
Subjective Progress Note for:: 07/11/19 Reason For Visit: CELLULITIS,BACTEREMIA Physical Exam Vital Signs: Temp Pulse Resp BP Pulse Ox 97.3 F 79 16 195/85 H 96 07/11/19 08:00 07/11/19 08:00 07/11/19 08:00 07/11/19 08:00 07/11/19 08:00 Intake & Output 07/10/19 07/11/19 07/12/19 06:59 06:59 06:59 Intake Total 320 2420 212 Output Total 10 250 Balance 310 2170 212 Weight 50 kg 50.2 kg Results Laboratory Results: 07/09/19 05:59 07/11/19 11:10 07/11/19 11:10 Sodium 137.7 Potassium 3.5 L Chloride 109 H Carbon Dioxide 18 L Anion Gap 11 BUN 16 Creatinine 0.83 Est GFR ( Amer) > 60 Glucose 119 H Calcium 9.0 Impressions: Foot X-Ray 07/06/19 18:48 IMPRESSION: Marked osteopenia. No obvious osteomyelitis or fractures. Lower Extremity MRI 07/07/19 00:00 IMPRESSION: Findings suggesting early osteomyelitis of the second proximal phalanx. Assessment & Plan - Diagnosis (1) Immunocompromised status associated with infection Is this a current diagnosis for this admission?: Yes (2) osteomyelitis of second toe right foot Is this a current diagnosis for this admission?: Yes - Time Time Spent with patient: Less than 15 minutes - Plan Summary Plan Summary: This is an 89-year-old female status post amputation of the toe due to ongoing i nfection and osteomyelitis. The patient's wound appears clean today. There is no sign of active infection. I have changed the dressing personally. Plan for delayed primary closure in the next several days. Will follow.
[2019-07-12] MEDS: ACETAMINOPHEN 325 MG TABLET PO SCH ×6 (05:29→23:00)
[2019-07-12] MEDS: CLOPIDOGREL BISULFATE 75 MG TABLET PO SCH (11:12)
[2019-07-12] MEDS: CETIRIZINE 10 MG TABLET PO SCH (11:12)
[2019-07-12] MEDS: MONTELUKAST SODIUM 10 MG TABLET PO SCH (11:12)
[2019-07-12] MEDS: AMLODIPINE BESYLATE 5 MG TABLET PO SCH (11:12)
[2019-07-12] MEDS: EZETIMIBE 10 MG TABLET PO SCH (11:12)
[2019-07-12] MEDS: DOCUSATE SODIUM 100 MG CAPSULE PO SCH ×2 (11:12→17:45)
[2019-07-12] MEDS: BENAZEPRIL HCL 10 MG TABLET PO SCH (11:12)
[2019-07-12] MEDS: DITROPAN 10 MG PO SCH (11:13)
[2019-07-12] MEDS: PREDNISOLONE ACETATE 1% OPH SUSP 5 ML OU SCH (11:15)
--- NOTE | 2019-07-12 15:04 | PDOC PROGRESS REPORT ---
Subjective Progress Note for:: 07/12/19 Subjective:: 07/07: Patient and family report report that the tenderness and redness on the right foot have significantly improved overnight with IV antibiotics. She denies any other acute complaints. Denies chest pain or shortness of breath. Surgery has ordered an MRI to rule out osteomyelitis. 07/08: No acute event overnight. The redness improved yesterday morning but is a bout the same from yesterday. MRI shows osteomyelitis and surgery has scheduled patient for toe amputation tomorrow. 07/09: Patient had a transient episode of confusion last night. This morning, she appears comfortable and is AO x 4. She denies acute complaints. The redness on the right foot has improved compared to yesterday. She is going for a toe amputation soon for her osteomyelitis. 07/10: Patient underwent right toe amputation yesterday. No acute event overnight. No fever or chills. No agitation or confusion overnight. She denies acute complaints. 07/11: No fever or chills. She is doing well. She denies acute complaints. Awaiting for final intraoperative culture results. Await reevaluation by PT. 07/12: No acute event overnight. She continues to do well. Surgery anticipating delayed primary wound closure in the next few days. Reason For Visit: CELLULITIS,BACTEREMIA Physical Exam Vital Signs: Temp Pulse Resp BP Pulse Ox 98.4 F 70 18 116/59 L 96 07/12/19 10:52 07/12/19 10:52 07/12/19 10:52 07/12/19 10:52 07/12/19 10:52 Intake & Output 07/11/19 07/12/19 07/13/19 06:59 06:59 06:59 Intake Total 2420 1174 Output Total 250 800 Balance 2170 374 Weight 110 lb 10.753 oz 119 lb 7.849 oz General appearance: PRESENT: no acute distress, well-developed, well-nourished Head exam: PRESENT: atraumatic, normocephalic Eye exam: PRESENT: conjunctiva pink, EOMI, PERRLA. ABSENT: scleral icterus Ear exam: PRESENT: normal external ear exam Mouth exam: PRESENT: moist, tongue midline Neck exam: ABSENT: carotid bruit, JVD, lymphadenopathy, thyromegaly Respiratory exam: PRESENT: clear to auscultation reinier. ABSENT: rales, rhonchi, wheezes Cardiovascular exam: PRESENT: RRR. ABSENT: diastolic murmur, rubs, systolic murmur Pulses: PRESENT: normal dorsalis pedis pul GI/Abdominal exam: PRESENT: normal bowel sounds, soft. ABSENT: distended, guarding, mass, organolmegaly, rebound, tenderness Rectal exam: PRESENT: deferred Musculoskeletal exam: PRESENT: other - dressing on right foot Neurological exam: PRESENT: alert, awake, oriented to person, oriented to place, oriented to time, oriented to situation, CN II-XII grossly intact. ABSENT: motor sensory deficit Results Laboratory Results: 07/09/19 05:59 07/11/19 11:10 07/06/19 18:22 Blood Blood Culture - Final Staphylococcus Epidermidis 07/09/19 12:42 Toe - Right Gram Stain - Final 07/09/19 12:42 Toe - Right Wound Culture - Final Mrsa (Meth Resis Staph Aureus) Staphylococcus Simulans No Anaerobic Organisms 07/06/19 17:10 Blood Blood Culture - Final NO GROWTH IN 5 DAYS Impressions: Foot X-Ray 07/06/19 18:48 IMPRESSION: Marked osteopenia. No obvious osteomyelitis or fractures. Lower Extremity MRI 07/07/19 00:00 IMPRESSION: Findings suggesting early osteomyelitis of the second proximal phalanx. Assessment and Plan - Diagnosis (1) Osteomyelitis Qualifiers: Osteomyelitis location: foot Laterality: right Is this a current diagnosis for this admission?: Yes Plan: S/P toe amputation on 07/09. 07/11: Awaiting for final intraoperative culture results. Await reevaluation by PT. 07/12: Surgery anticipating delayed primary wound closure in the next few days. Wound cultures grew MRSA. Continue vancomycin. Blood culture grew s. epi 1/2 likely contamination. May need to be switched to either clindamycin or doxycycline whe she is ready for discharge. (2) Cellulitis Qualifiers: Site of cellulitis: extremity Site of cellulitis of extremity: lower extremity Laterality: right Qualified Code(s): L03.115 - Cellulitis of right lower limb Is this a current diagnosis for this admission?: Yes Plan: Improving. Continue vancomycin. (3) Rheumatoid arthritis Qualifiers: Rheumatoid arthritis location: multiple sites Rheumatoid factor presence: unspecified presence Qualified Code(s): M06.9 - Rheumatoid arthritis, unspecified Is this a current diagnosis for this admission?: Yes (4) HTN (hypertension) Is this a current diagnosis for this admission?: Yes Plan: Home meds resumed. - Time Time Spent with patient: 15-24 minutes
[2019-07-12] MEDS: VANCOMYCIN HCL 1,000 MG in DEXTROSE 5%-WATER 250 ML IV SCH (17:46)
[2019-07-12 18:32] LABS: VANCOMYCIN,TROUGH 15.8 ug/mL (5.0-20.0)
[2019-07-12] MEDS: NORMAL SALINE 1000 ML 1,000 ML IV PRN (20:49)
--- NOTE | 2019-07-12 23:05 | PDOC PROGRESS REPORT ---
Subjective Progress Note for:: 07/12/19 Reason For Visit: CELLULITIS,BACTEREMIA Physical Exam Vital Signs: Temp Pulse Resp BP Pulse Ox 98.4 F 70 18 116/59 L 96 07/12/19 10:52 07/12/19 10:52 07/12/19 10:52 07/12/19 10:52 07/12/19 10:52 Intake & Output 07/11/19 07/12/19 07/13/19 06:59 06:59 06:59 Intake Total 2420 1174 Output Total 250 800 Balance 2170 374 Weight 50.2 kg 54.2 kg Results Laboratory Results: 07/09/19 05:59 07/11/19 11:10 07/06/19 18:22 Blood Blood Culture - Final Staphylococcus Epidermidis 07/09/19 12:42 Toe - Right Gram Stain - Final 07/09/19 12:42 Toe - Right Wound Culture - Final Mrsa (Meth Resis Staph Aureus) Staphylococcus Simulans No Anaerobic Organisms 07/06/19 17:10 Blood Blood Culture - Final NO GROWTH IN 5 DAYS Impressions: Foot X-Ray 07/06/19 18:48 IMPRESSION: Marked osteopenia. No obvious osteomyelitis or fractures. Lower Extremity MRI 07/07/19 00:00 IMPRESSION: Findings suggesting early osteomyelitis of the second proximal phalanx. Assessment & Plan - Diagnosis (1) Immunocompromised status associated with infection Is this a current diagnosis for this admission?: Yes (2) osteomyelitis of second toe right foot Is this a current diagnosis for this admission?: Yes - Time Time Spent with patient: Less than 15 minutes - Plan Summary Plan Summary: This is an 89-year-old female status post amputation of the toe due to ongoing infection and osteomyelitis. The patient's wound appears clean today. There is no sign of active infection. I have changed the dressing personally. Plan for delayed primary closure in the next several days. Will follow.
[2019-07-13] MEDS: HYDRALAZINE HCL INJ/PF 20 MG/1 ML SDV IV PRN ×2 (03:22→07:47)
[2019-07-13] MEDS: ACETAMINOPHEN 325 MG TABLET PO SCH ×2 (03:23→07:42)
[2019-07-13] MEDS: ALPRAZOLAM 0.5 MG TABLET PO PRN (03:24)
[2019-07-13] MEDS: PREDNISOLONE ACETATE 1% OPH SUSP 5 ML OU SCH ×3 (09:57→21:22)
[2019-07-13] MEDS: DOCUSATE SODIUM 100 MG CAPSULE PO SCH ×2 (09:58→18:40)
[2019-07-13] MEDS: CETIRIZINE 10 MG TABLET PO SCH (09:58)
[2019-07-13] MEDS: AMLODIPINE BESYLATE 5 MG TABLET PO SCH (09:58)
[2019-07-13] MEDS: DITROPAN 10 MG PO SCH (09:58)
[2019-07-13] MEDS: MONTELUKAST SODIUM 10 MG TABLET PO SCH (09:58)
[2019-07-13] MEDS: CLOPIDOGREL BISULFATE 75 MG TABLET PO SCH (09:58)
[2019-07-13] MEDS: BENAZEPRIL HCL 10 MG TABLET PO SCH (09:59)
[2019-07-13] MEDS: EZETIMIBE 10 MG TABLET PO SCH (09:59)
--- NOTE | 2019-07-13 11:04 | PDOC PROGRESS REPORT ---
Subjective Progress Note for:: 07/13/19 Reason For Visit: CELLULITIS,BACTEREMIA s/p amputation of rt second toe Physical Exam Vital Signs: Temp Pulse Resp BP Pulse Ox 98.2 F 96 18 154/102 H 94 07/13/19 07:41 07/13/19 07:41 07/13/19 07:41 07/13/19 07:41 07/13/19 07:41 Intake & Output 07/12/19 07/13/19 07/14/19 06:59 06:59 06:59 Intake Total 1174 2647 Output Total 800 1000 Balance 374 1647 Weight 54.2 kg 56.7 kg General appearance: PRESENT: no acute distress Head exam: PRESENT: normocephalic Eye exam: PRESENT: EOMI Ear exam: PRESENT: normal external ear exam Mouth exam: PRESENT: moist Neck exam: PRESENT: full ROM Respiratory exam: PRESENT: clear to auscultation reinier Cardiovascular exam: PRESENT: RRR Pulses: PRESENT: +1 pedal pulses bilateral GI/Abdominal exam: PRESENT: soft Rectal exam: PRESENT: deferred Extremities exam: PRESENT: other - rt second toe amp site with dpc sutures in place wound clean iwth only min granulation tissue. Neurological exam: PRESENT: alert Psychiatric exam: PRESENT: appropriate affect Skin exam: PRESENT: dry Results Laboratory Results: 07/09/19 05:59 07/12/19 18:05 07/12/19 18:05 Creatinine 0.74 Est GFR ( Amer) > 60 07/11/19 08:15 Clean Catch Midstream Urine Culture - Final Mixed Urogenital Edwige 07/06/19 18:22 Blood Blood Culture - Final Staphylococcus Epidermidis 07/09/19 12:42 Toe - Right Gram Stain - Final 07/09/19 12:42 Toe - Right Wound Culture - Final Mrsa (Meth Resis Staph Aureus) Staphylococcus Simulans No Anaerobic Organisms Impressions: Foot X-Ray 07/06/19 18:48 IMPRESSION: Marked osteopenia. No obvious osteomyelitis or fractures. Lower Extremity MRI 07/07/19 00:00 IMPRESSION: Findings suggesting early osteomyelitis of the second proximal phalanx. Assessment & Plan - Diagnosis (1) Cellulitis of second toe of right foot Is this a current diagnosis for this admission?: Yes - Time Time Spent with patient: 25-34 minutes - Plan Summary Plan Summary: cont wet to dry dressings dpc wound tomorrow or wed.
--- NOTE | 2019-07-13 12:37 | PDOC PROGRESS REPORT ---
Subjective Progress Note for:: 07/13/19 Subjective:: 07/07: Patient and family report report that the tenderness and redness on the right foot have significantly improved overnight with IV antibiotics. She denies any other acute complaints. Denies chest pain or shortness of breath. Surgery has ordered an MRI to rule out osteomyelitis. 07/08: No acute event overnight. The redness improved yesterday morning but is a bout the same from yesterday. MRI shows osteomyelitis and surgery has scheduled patient for toe amputation tomorrow. 07/09: Patient had a transient episode of confusion last night. This morning, she appears comfortable and is AO x 4. She denies acute complaints. The redness on the right foot has improved compared to yesterday. She is going for a toe amputation soon for her osteomyelitis. 07/10: Patient underwent right toe amputation yesterday. No acute event overnight. No fever or chills. No agitation or confusion overnight. She denies acute complaints. 07/11: No fever or chills. She is doing well. She denies acute complaints. Awaiting for final intraoperative culture results. Await reevaluation by PT. 07/12: She continues to do well. Surgery anticipating delayed primary wound cl osure in the next few days. 07/13: No acute event overnight. She denies acute complaint. No fever or chills. Surgery planning on primary wound closure in the next 24-28 hrs. Reason For Visit: CELLULITIS,BACTEREMIA Physical Exam Vital Signs: Temp Pulse Resp BP Pulse Ox 98.4 F 68 19 89/53 L 96 07/13/19 11:45 07/13/19 11:45 07/13/19 11:45 07/13/19 11:45 07/13/19 11:45 Intake & Output 07/12/19 07/13/19 07/14/19 06:59 06:59 06:59 Intake Total 1174 2647 Output Total 800 1000 Balance 374 1647 Weight 119 lb 7.849 oz 125 lb 0.034 oz General appearance: PRESENT: no acute distress, well-developed, well-nourished Head exam: PRESENT: atraumatic, normocephalic Eye exam: PRESENT: conjunctiva pink, EOMI, PERRLA. ABSENT: scleral icterus Ear exam: PRESENT: normal external ear exam Mouth exam: PRESENT: moist, tongue midline Neck exam: ABSENT: carotid bruit, JVD, lymphadenopathy, thyromegaly Respiratory exam: PRESENT: clear to auscultation reinier. ABSENT: rales, rhonchi, wheezes Cardiovascular exam: PRESENT: RRR. ABSENT: diastolic murmur, rubs, systolic murmur Pulses: PRESENT: normal dorsalis pedis pul GI/Abdominal exam: PRESENT: normal bowel sounds, soft. ABSENT: distended, guarding, mass, organolmegaly, rebound, tenderness Rectal exam: PRESENT: deferred Neurological exam: PRESENT: alert, awake, oriented to person, oriented to place, oriented to time, oriented to situation, CN II-XII grossly intact. ABSENT: motor sensory deficit Results Laboratory Results: 07/09/19 05:59 07/12/19 18:05 07/12/19 18:05 Creatinine 0.74 Est GFR ( Amer) > 60 07/11/19 08:15 Clean Catch Midstream Urine Culture - Final Mixed Urogenital Edwige 07/06/19 18:22 Blood Blood Culture - Final Staphylococcus Epidermidis 07/09/19 12:42 Toe - Right Gram Stain - Final 07/09/19 12:42 Toe - Right Wound Culture - Final Mrsa (Meth Resis Staph Aureus) Staphylococcus Simulans No Anaerobic Organisms Impressions: Foot X-Ray 07/06/19 18:48 IMPRESSION: Marked osteopenia. No obvious osteomyelitis or fractures. Lower Extremity MRI 07/07/19 00:00 IMPRESSION: Findings suggesting early osteomyelitis of the second proximal phalanx. Assessment and Plan - Diagnosis (1) Osteomyelitis Qualifiers: Osteomyelitis location: foot Laterality: right Is this a current diagnosis for this admission?: Yes Plan: S/P toe amputation on 07/09. 07/11: Awaiting for final intraoperative culture results. Await reevaluation by PT. 07/12: Surgery anticipating delayed primary wound closure in the next few days. Wound cultures grew MRSA. Continue vancomycin. Blood culture grew s. epi 1/2 likely contamination. May need to be switched to either clindamycin or doxycycline when she is ready for discharge. 07/13: Surgery planning on primary wound closure in the next 24-28 hrs. (2) Cellulitis Qualifiers: Site of cellulitis: extremity Site of cellulitis of extremity: lower extremity Laterality: right Qualified Code(s): L03.115 - Cellulitis of right lower limb Is this a current diagnosis for this admission?: Yes Plan: Improving. Continue vancomycin. (3) Rheumatoid arthritis Qualifiers: Rheumatoid arthritis location: multiple sites Rheumatoid factor presence: unspecified presence Qualified Code(s): M06.9 - Rheumatoid arthritis, unspecified Is this a current diagnosis for this admission?: Yes (4) HTN (hypertension) Is this a current diagnosis for this admission?: Yes Plan: Home meds resumed. - Time Time Spent with patient: 15-24 minutes
[2019-07-13] MEDS: VANCOMYCIN HCL 1,000 MG in DEXTROSE 5%-WATER 250 ML IV SCH (21:23)
[2019-07-14] MEDS: NORMAL SALINE 1000 ML 1,000 ML IV PRN (03:05)
[2019-07-14] MEDS: DOCUSATE SODIUM 100 MG CAPSULE PO SCH ×2 (10:03→17:27)
[2019-07-14] MEDS: CETIRIZINE 10 MG TABLET PO SCH (10:03)
[2019-07-14] MEDS: EZETIMIBE 10 MG TABLET PO SCH (10:03)
[2019-07-14] MEDS: AMLODIPINE BESYLATE 5 MG TABLET PO SCH (10:03)
[2019-07-14] MEDS: CLOPIDOGREL BISULFATE 75 MG TABLET PO SCH (10:03)
[2019-07-14] MEDS: MONTELUKAST SODIUM 10 MG TABLET PO SCH (10:04)
[2019-07-14] MEDS: BENAZEPRIL HCL 10 MG TABLET PO SCH (10:04)
[2019-07-14] MEDS: DITROPAN 10 MG PO SCH (10:04)
--- NOTE | 2019-07-14 12:27 | PDOC PROGRESS REPORT ---
Subjective Progress Note for:: 07/14/19 Subjective:: 07/14/2019 patient was admitted for osteomyelitis of the toe amputation was performed on 07/09/2019 Patient scheduled for primary wound closure either today or tomorrow. Patient has been on vancomycin now for 5 days. She will be going home at the time of discharge. Reason For Visit: CELLULITIS,BACTEREMIA Physical Exam Vital Signs: Temp Pulse Resp BP Pulse Ox 98.4 F 75 16 135/66 H 96 07/14/19 11:58 07/14/19 11:58 07/14/19 11:58 07/14/19 11:58 07/14/19 11:58 Intake & Output 07/13/19 07/14/19 07/15/19 06:59 06:59 06:59 Intake Total 2647 1368 477 Output Total 1000 400 Balance 1647 1368 77 Weight 56.7 kg General appearance: PRESENT: no acute distress, other Respiratory exam: PRESENT: clear to auscultation reinier. ABSENT: rales, rhonchi, wheezes Cardiovascular exam: PRESENT: RRR. ABSENT: diastolic murmur, rubs, systolic murmur Neurological exam: PRESENT: alert, awake, oriented to person, oriented to place, oriented to time, oriented to situation, CN II-XII grossly intact. ABSENT: motor sensory deficit Psychiatric exam: PRESENT: appropriate affect, normal mood. ABSENT: homicidal ideation, suicidal ideation Results Laboratory Results: 07/09/19 05:59 07/12/19 18:05 07/11/19 08:15 Clean Catch Midstream Urine Culture - Final Mixed Urogenital Edwige Impressions: Foot X-Ray 07/06/19 18:48 IMPRESSION: Marked osteopenia. No obvious osteomyelitis or fractures. Lower Extremity MRI 07/07/19 00:00 IMPRESSION: Findings suggesting early osteomyelitis of the second proximal phalanx. Assessment and Plan - Diagnosis (1) Cellulitis Qualifiers: Site of cellulitis: extremity Site of cellulitis of extremity: lower extremity Laterality: right Qualified Code(s): L03.115 - Cellulitis of right lower limb Is this a current diagnosis for this admission?: Yes Plan: Improving. Continue vancomycin. 07-14-19-day# 5 of vancomycin (2) Osteomyelitis Qualifiers: Osteomyelitis location: foot Laterality: right Is this a current diagnosis for this admission?: Yes Plan: S/P toe amputation on 07/09. 07/11: Awaiting for final intraoperative culture results. Await reevaluation by PT. 07/12: Surgery anticipating delayed primary wound closure in the next few days. Wound cultures grew MRSA. Continue vancomycin. Blood culture grew s. epi 1/2 likely contamination. May need to be switched to either clindamycin or doxycycline when she is ready for discharge. 07/13: Surgery planning on primary wound closure in the next 24-28 hrs. 07/14/2019 Jasmine wound closure today. She is postop day 5 for toe amputation. Day 5 on vancomycin. We will switch patient to clindamycin at time of discharge (3) Rheumatoid arthritis Qualifiers: Rheumatoid arthritis location: multiple sites Rheumatoid factor presence: unspecified presence Qualified Code(s): M06.9 - Rheumatoid arthritis, unspecified Is this a current diagnosis for this admission?: Yes Plan: Patient has had rheumatoid arthritis now for over 30 years. Patient is on methotrexate - Plan Summary Summary: To discharge home probably or Saturday - Time Time Spent with patient: 35 or more minutes
[2019-07-14] MEDS: VANCOMYCIN HCL 1,000 MG in DEXTROSE 5%-WATER 250 ML IV SCH (17:27)
--- NOTE | 2019-07-14 19:38 | PDOC PROGRESS REPORT ---
Subjective Progress Note for:: 07/14/19 Subjective:: less pains left 2nd toe amp site Reason For Visit: CELLULITIS,BACTEREMIA Physical Exam Vital Signs: Temp Pulse Resp BP Pulse Ox 98.3 F 88 18 140/67 H 94 07/14/19 16:00 07/14/19 16:00 07/14/19 16:00 07/14/19 16:00 07/14/19 16:00 Intake & Output 07/13/19 07/14/19 07/15/19 06:59 06:59 06:59 Intake Total 2647 1368 1801 Output Total 1000 600 Balance 1647 1368 1201 Weight 56.7 kg Exam: left 2nd toe ray amp site looks clean with minimal granulation tissue Results Laboratory Results: 07/09/19 05:59 07/12/19 18:05 Impressions: Foot X-Ray 07/06/19 18:48 IMPRESSION: Marked osteopenia. No obvious osteomyelitis or fractures. Lower Extremity MRI 07/07/19 00:00 IMPRESSION: Findings suggesting early osteomyelitis of the second proximal phalanx. Assessment & Plan - Time Time Spent with patient: 15-24 minutes - Inpatient Certification Medical Necessity: Need for IV Antibiotics - Plan Summary Plan Summary: POD # 5 left 2nd toe ray amp Plan: Continue wet to dry dressings today and IV antibiotics Possible Delayed primary closure of amp site tomorrow.
[2019-07-14] MEDS: PREDNISOLONE ACETATE 1% OPH SUSP 5 ML OU SCH (21:20)
[2019-07-14] MEDS: CLINDAMYCIN HCL 150 MG CAPSULE PO SCH (21:21)
[2019-07-14] MEDS: ALPRAZOLAM 0.5 MG TABLET PO PRN (23:51)
[2019-07-15] MEDS: CLINDAMYCIN HCL 150 MG CAPSULE PO SCH ×3 (05:29→21:53)
[2019-07-15] MEDS: OXYCODONE-ACETAMINOPHEN 5-325 MG TABLET ONE ×2 (07:27→07:32)
[2019-07-15] MEDS ORDERED: ACETAMINOPHEN 325 MG TABLET PO PRN (10:05)
[2019-07-15] MEDS ORDERED: ACETAMINOPHEN 325 MG TABLET ONE (10:07)
[2019-07-15] MEDS: AMLODIPINE BESYLATE 5 MG TABLET PO SCH (10:22)
[2019-07-15] MEDS: DOCUSATE SODIUM 100 MG CAPSULE PO SCH ×2 (10:22→18:56)
[2019-07-15] MEDS: CETIRIZINE 10 MG TABLET PO SCH (10:22)
[2019-07-15] MEDS: DITROPAN 10 MG PO SCH (10:23)
[2019-07-15] MEDS: MONTELUKAST SODIUM 10 MG TABLET PO SCH (10:23)
[2019-07-15] MEDS: EZETIMIBE 10 MG TABLET PO SCH (10:23)
[2019-07-15] MEDS: METHOTREXATE SODIUM 2.5 MG TABLET PO SCH (10:23)
[2019-07-15] MEDS: CLOPIDOGREL BISULFATE 75 MG TABLET PO SCH (10:23)
[2019-07-15] MEDS: BENAZEPRIL HCL 10 MG TABLET PO SCH (10:23)
--- NOTE | 2019-07-15 10:54 | PDOC PROGRESS REPORT ---
Subjective Progress Note for:: 07/15/19 Subjective:: 07/14/2019 patient was admitted for osteomyelitis of the toe amputation was performed on 07/09/2019 Patient scheduled for primary wound closure either today or tomorrow. Patient has been on vancomycin now for 5 days. She will be going home at the time of discharge. 07/15/2019 patient lost her IV access yesterday and we were unable to restart her IV. Therefore switched her to p.o. clindamycin, she is allergic to multiple antibiotics. Will discharge patient on this medication. Surgery addressed her wound this morning. We will follow their lead as to when patient can be discharged. Family would like 24-hour notice prior to discharge. Patient appears medically stable Reason For Visit: CELLULITIS,BACTEREMIA Physical Exam Vital Signs: Temp Pulse Resp BP Pulse Ox 98.4 F 76 19 163/79 H 94 07/15/19 08:00 07/15/19 08:00 07/15/19 08:00 07/15/19 08:00 07/15/19 08:00 Intake & Output 07/14/19 07/15/19 07/16/19 06:59 06:59 06:59 Intake Total 1368 2133 Output Total 1650 Balance 1368 483 Weight 56.5 kg General appearance: PRESENT: no acute distress, other - Tolerating p.o.'s well Respiratory exam: PRESENT: clear to auscultation reinier. ABSENT: rales, rhonchi, wheezes Cardiovascular exam: PRESENT: RRR. ABSENT: diastolic murmur, rubs, systolic murmur Neurological exam: PRESENT: alert, awake, oriented to person, oriented to place, oriented to time, oriented to situation, CN II-XII grossly intact. ABSENT: motor sensory deficit Psychiatric exam: PRESENT: appropriate affect, normal mood. ABSENT: homicidal ideation, suicidal ideation Results Laboratory Results: 07/09/19 05:59 07/12/19 18:05 Impressions: Foot X-Ray 07/06/19 18:48 IMPRESSION: Marked osteopenia. No obvious osteomyelitis or fractures. Lower Extremity MRI 07/07/19 00:00 IMPRESSION: Findings suggesting early osteomyelitis of the second proximal phalanx. Assessment and Plan - Diagnosis (1) Cellulitis Qualifiers: Site of cellulitis: extremity Site of cellulitis of extremity: lower extremity Laterality: right Qualified Code(s): L03.115 - Cellulitis of right lower limb Is this a current diagnosis for this admission?: Yes (2) Osteomyelitis Qualifiers: Osteomyelitis location: foot Laterality: right Is this a current diagnosis for this admission?: Yes (3) Rheumatoid arthritis Qualifiers: Rheumatoid arthritis location: multiple sites Rheumatoid factor presence: unspecified presence Qualified Code(s): M06.9 - Rheumatoid arthritis, unspecified Is this a current diagnosis for this admission?: Yes (4) Hypertension Qualifiers: Hypertension type: essential hypertension Qualified Code(s): I10 - Essential (primary) hypertension Is this a current diagnosis for this admission?: Yes Plan: Blood pressures appear to be stable, some days completely normal and other days slightly high. His morning blood pressure 163/79 Patient currently taking Norvasc 5 mg daily ,Zetia 10 mg daily, Lotensin 10 mg daily - Plan Summary Summary: To discharge home probably or Saturday07/15/2019 Switch patient over to p.o. clindamycin, hopefully her GI tract will tolerate this medication as she has had trouble with other antibiotics in the past. Surgery is doing daily wound checks - Time Time Spent with patient: 25-34 minutes
--- NOTE | 2019-07-15 16:50 | PDOC PROGRESS REPORT ---
Subjective Progress Note for:: 07/15/19 Subjective:: less pains amp site Reason For Visit: CELLULITIS,BACTEREMIA Physical Exam Vital Signs: Temp Pulse Resp BP Pulse Ox 98.3 F 92 18 154/83 H 96 07/15/19 16:00 07/15/19 16:00 07/15/19 16:00 07/15/19 16:00 07/15/19 16:00 Intake & Output 07/14/19 07/15/19 07/16/19 06:59 06:59 06:59 Intake Total 1368 2133 253 Output Total 1650 225 Balance 1368 483 28 Weight 56.5 kg 56.5 kg Exam: amp site appears to have some granulation tissue. Sutures left untied in the OR was then tied to close the wound as delayed primary closure. Results Laboratory Results: 07/09/19 05:59 07/12/19 18:05 Impressions: Foot X-Ray 07/06/19 18:48 IMPRESSION: Marked osteopenia. No obvious osteomyelitis or fractures. Lower Extremity MRI 07/07/19 00:00 IMPRESSION: Findings suggesting early osteomyelitis of the second proximal phalanx. Assessment & Plan - Time Time Spent with patient: 15-24 minutes - Plan Summary Plan Summary: She can be discharged tomorrow on po clindamycin Arrange follow up at surgical clinic in 2 weeks for removal of sutures
[2019-07-15] MEDS ORDERED: ALPRAZOLAM 0.5 MG TABLET PO PRN (21:20)
[2019-07-15] MEDS: PREDNISOLONE ACETATE 1% OPH SUSP 5 ML OU SCH (21:52)
[2019-07-16] MEDS: CLINDAMYCIN HCL 150 MG CAPSULE PO SCH ×2 (06:02→14:32)
[2019-07-16] MEDS: AMLODIPINE BESYLATE 5 MG TABLET PO SCH (09:26)
[2019-07-16] MEDS: CLOPIDOGREL BISULFATE 75 MG TABLET PO SCH (09:26)
[2019-07-16] MEDS: DOCUSATE SODIUM 100 MG CAPSULE PO SCH ×2 (09:26→17:54)
[2019-07-16] MEDS: CETIRIZINE 10 MG TABLET PO SCH (09:26)
[2019-07-16] MEDS: BENAZEPRIL HCL 10 MG TABLET PO SCH (09:28)
[2019-07-16] MEDS: DITROPAN 10 MG PO SCH (09:28)
[2019-07-16] MEDS: MONTELUKAST SODIUM 10 MG TABLET PO SCH (09:28)
[2019-07-16] MEDS: EZETIMIBE 10 MG TABLET PO SCH (09:29)
--- NOTE | 2019-07-16 14:24 | Progress Note ---
Provider Note Provider Note: Patient was to be discharged today but due to transportation issues will have to delay until tomorrow. Prescriptions have been written, clindamycin and home health ,discharge plan has been put into the chart Wound right foot was examined today
[2019-07-16 16:18] VITALS: BP 143/62
--- NOTE | 2019-07-16 16:48 | PDOC DISCHARGE SUMMARY ---
Impression - Admit/DC Date/PCP Admission Date/Primary Care Provider: 07/08/19 15:44 FRENCH LONG MD Discharge Date: 07/16/19 - Discharge Diagnosis (1) Cellulitis Is this a current diagnosis for this admission?: Yes (2) Osteomyelitis Is this a current diagnosis for this admission?: Yes (3) Rheumatoid arthritis Is this a current diagnosis for this admission?: Yes (4) Hypertension Is this a current diagnosis for this admission?: Yes - Assessment Summary: To discharge home probably or Saturday07/15/2019 Switch patient over to p.o. clindamycin, hopefully her GI tract will tolerate this medication as she has had trouble with other antibiotics in the past. Surgery is doing daily wound checks 07/16/2019 She was originally admitted on 07/06/2019 with a right foot infection that is been going on for 1 week prior to admission. She had been seen at her primary care provider and was sent to the emergency room for this infection. Tray in the ER showed what appeared to be osteomyelitis. She was cleared by general surgery yesterday to be discharged today. I have inspected the patient's foot the wound is clean and dry, only slight redness but no drainage. Sutures are intact. All in the hospital the patient was on imipenem, due to the patient's osteomyelitis and MRSA from the wound, today she was switched over to p.o. clindamycin 100 mg 3 times daily. According to the patient and her son she has a "very sensitive stomach ". Ticket early with antibiotics.. She is allergic and or cannot tolerate multiple types of antibiotics. She has had no problem in the hospital with this particular antibiotic on this occasion. Patient is to follow-up with general surgery in 2 weeks. Patient's Gram stain did grow out MRSA, and cultures grew out staph epidermidis, urine culture grew out mixed priscilla. At the time of discharge patient is medically stable, will resume her home meds as well as the clindamycin - Additional Information Resuscitation Status: Full Code Discharge Diet: As Tolerated Discharge Activity: Balance Activity w/Rest Referrals: [facility] [Provider Group] - 07/20/19 10:15 am Prescriptions: Clindamycin HCl [Cleocin 150 mg Capsule] 300 mg PO Q8 #30 capsule Home Medications: Alprazolam [Xanax 0.5 mg Tablet] 0.5 mg PO HSP PRN 07/06/19 Amlodipine Besylate/Benazepril [Lotrel 5-10 mg Capsule] 1 cap PO DAILY 07/06/19 Clopidogrel Bisulfate [Plavix 75 mg Tablet] 75 mg PO QPM 07/06/19 Ezetimibe [Zetia 10 mg Tablet] 10 mg PO QPM 07/06/19 Lutein 6 mg PO DAILY 07/06/19 Methotrexate Sodium [Rheumatrex 2.5 mg Tablet] 5 mg PO SUWE@1000 07/06/19 Montelukast Sodium [Singulair 10 mg Tablet] 10 mg PO QPM 07/06/19 Oxybutynin Chloride [Oxybutynin Chloride ER] 10 mg PO DAILY 07/06/19 Ranitidine HCl [Heartburn Relief 150] 150 mg PO BID 07/06/19 Vits A,C,E/Zinc/Copper [Savision Tablet] 1 tab PO DAILY 07/06/19 Bacitracin/Polymyxin B Sulfate [Bacitracin-Polymyxin Eye Oint] 1 applic OP ASDIR PRN 07/08/19 Brinzolamide/Brimonidine Tart [Simbrinza 1%-0.2% Eye Drops] 1 drop OU BID 07/08/19 Prednisolone Acetate [Pred Forte] 1 drop OU DAILY 07/08/19 Cetirizine HCl [Zyrtec 10 mg Tablet] 10 mg PO DAILY tablet 07/16/19 Clindamycin HCl [Cleocin 150 mg Capsule] 300 mg PO Q8 #30 capsule 07/16/19 Montelukast Sodium [Singulair 10 mg Tablet] 10 mg PO DAILY tablet 07/16/19 History of Present Illiness History of Present Illness: RADHA ABDI is a 89 year old female Physical Exam Vital Signs: Temp Pulse Resp BP Pulse Ox 98.3 F 72 18 143/62 H 95 07/16/19 16:00 07/16/19 16:00 07/16/19 16:00 07/16/19 16:00 07/16/19 16:00 Intake & Output 07/15/19 07/16/19 07/17/19 06:59 06:59 06:59 Intake Total 2133 581 118 Output Total 1650 945 300 Balance 531 -281 -029 Weight 56.5 kg 56.2 kg Results Laboratory Results: WBC 8.0 10^3/uL (4.0-10.5) 07/09/19 05:59 RBC 3.97 10^6/uL (3.72-5.28) 07/09/19 05:59 Hgb 13.5 g/dL (12.0-15.5) 07/09/19 05:59 Hct 40.5 % (36.0-47.0) 07/09/19 05:59 MCV 102 fl (80-97) H 07/09/19 05:59 MCH 34.1 pg (27.0-33.4) H 07/09/19 05:59 MCHC 33.5 g/dL (32.0-36.0) 07/09/19 05:59 RDW 14.7 % (11.5-14.0) H 07/09/19 05:59 Plt Count 200 10^3/uL (150-450) 07/09/19 05:59 Lymph % (Auto) 6.3 % (13-45) L 07/06/19 17:10 Brown % (Auto) 5.5 % (3-13) 07/06/19 17:10 Eos % (Auto) 0.6 % (0-6) 07/06/19 17:10 Baso % (Auto) 0.5 % (0-2) 07/06/19 17:10 Absolute Neuts (auto) 7.2 10^3/uL (1.7-8.2) 07/06/19 17:10 Absolute Lymphs (auto) 0.5 10^3/uL (0.5-4.7) 07/06/19 17:10 Absolute Monos (auto) 0.5 10^3/uL (0.1-1.4) 07/06/19 17:10 Absolute Eos (auto) 0.0 10^3/uL (0.0-0.6) 07/06/19 17:10 Absolute Basos (auto) 0.0 10^3/uL (0.0-0.2) 07/06/19 17:10 Seg Neutrophils % 87.1 % (42-78) H 07/06/19 17:10 ESR 36 mm/hr (0-30) H 07/07/19 18:33 Sodium 137.7 mmol/L (137-145) 07/11/19 11:10 Potassium 3.5 mmol/L (3.6-5.0) L 07/11/19 11:10 Chloride 109 mmol/L (98-107) H 07/11/19 11:10 Carbon Dioxide 18 mmol/L (22-30) L 07/11/19 11:10 Anion Gap 11 (5-19) 07/11/19 11:10 BUN 16 mg/dL (7-20) 07/11/19 11:10 Creatinine 0.74 mg/dL (0.52-1.25) 07/12/19 18:05 Est GFR ( Amer) > 60 (>60) 07/12/19 18:05 Est GFR (MDRD) Non-Af > 60 (>60) 07/12/19 18:05 Glucose 119 mg/dL (75-110) H 07/11/19 11:10 Calcium 9.0 mg/dL (8.4-10.2) 07/11/19 11:10 Magnesium 2.1 mg/dL (1.6-2.3) 07/09/19 05:59 Total Bilirubin 0.6 mg/dL (0.2-1.3) 07/06/19 17:10 Direct Bilirubin 0.1 mg/dL (0.0-0.4) 07/06/19 17:10 Neonat Total Bilirubin Not Reportable 07/06/19 17:10 Neonat Direct Bilirubin Not Reportable 07/06/19 17:10 Neonat Indirect Bili Not Reportable 07/06/19 17:10 AST 25 U/L (14-36) 07/06/19 17:10 ALT 15 U/L (<35) 07/06/19 17:10 Alkaline Phosphatase 108 U/L (38-126) 07/06/19 17:10 C-Reactive Protein 45.2 mg/L (<10.0) H 07/07/19 05:54 Total Protein 7.1 g/dL (6.3-8.2) 07/06/19 17:10 Albumin 3.7 g/dL (3.5-5.0) 07/06/19 17:10 Urine Color YELLOW 07/07/19 06:09 Urine Appearance SLIGHTLY-CLOUDY 07/07/19 06:09 Urine pH 6.0 (5.0-9.0) 07/07/19 06:09 Ur Specific [place] 1.012 07/07/19 06:09 Urine Protein NEGATIVE mg/dL (NEGATIVE) 07/07/19 06:09 Urine Glucose (UA) NEGATIVE mg/dL (NEGATIVE) 07/07/19 06:09 Urine Ketones NEGATIVE mg/dL (NEGATIVE) 07/07/19 06:09 Urine Blood SMALL (NEGATIVE) H 07/07/19 06:09 Urine Nitrite POSITIVE (NEGATIVE) H 07/07/19 06:09 Urine Bilirubin NEGATIVE (NEGATIVE) 07/07/19 06:09 Urine Urobilinogen 2.0 mg/dL (<2.0) H 07/07/19 06:09 Ur Leukocyte Esterase SMALL (NEGATIVE) H 07/07/19 06:09 Urine WBC (Auto) 15 /HPF 07/07/19 06:09 Urine RBC (Auto) 3 /HPF 07/07/19 06:09 Urine Bacteria (Auto) TRACE /HPF 07/07/19 06:09 Squamous Epi Cells Auto <1 /HPF 07/07/19 06:09 Calcium Oxalate Cr Auto MANY /HPF 07/07/19 06:09 Urine Mucus (Auto) RARE /LPF 07/07/19 06:09 Urine Ascorbic Acid NEGATIVE (NEGATIVE) 07/07/19 06:09 Time Trough Drawn 1805 07/12/19 18:05 Vancomycin Trough 15.8 ug/mL (5.0-20.0) 07/12/19 18:05 Impressions: Foot X-Ray 07/06/19 18:48 IMPRESSION: Marked osteopenia. No obvious osteomyelitis or fractures. Lower Extremity MRI 07/07/19 00:00 IMPRESSION: Findings suggesting early osteomyelitis of the second proximal phalanx. Stroke Is this a Stroke Patient?: No Acute Heart Failure - Is this a Heart Failure Patient?: No
== END 2019-07-16 19:42 | disposition home health service (06) | DRG 580 ==
LOC: ER 15:28 → INTOOBSV 19:52 → EH 19:52 → UNDOADMIN 19:55 → EH 19:55 → 4W 21:59 → OBSVTOIN 07-08 15:44
PROVIDERS: ADMIT Emergency Medicine; ATTEND Emergency Medicine
PROC: 0HBRXZZ Excision of Toe Nail, External Approach (ICD-10-PCS; 2019-07-09)
PROC: 0HBRXZZ Excision of Toe Nail, External Approach (ICD-10-PCS; 2019-07-09)
PROC: 0HBRXZZ Excision of Toe Nail, External Approach (ICD-10-PCS; 2019-07-09)
PROC: 0Y6R0Z0 Detachment at Right 2nd Toe, Complete, Open Approach (ICD-10-PCS; principal; 2019-07-09 11:00)
PROC: 3E02340 Introduction of Influenza Vaccine into Muscle, Percutaneous Approach (ICD-10-PCS; 2019-07-16)
DX: L03.115 Cellulitis of right lower limb (principal); M86.9 Osteomyelitis, unspecified; I10 Essential (primary) hypertension; B95.62 Methicillin resistant Staphylococcus aureus infection as the cause of diseases classified elsewhere; M06.9 Rheumatoid arthritis, unspecified; E78.1 Pure hyperglyceridemia; L03.031 Cellulitis of right toe; M06.89 Other specified rheumatoid arthritis, multiple sites; R32 Unspecified urinary incontinence; D89.9 Disorder involving the immune mechanism, unspecified; Z96.643 Presence of artificial hip joint, bilateral; Z96.653 Presence of artificial knee joint, bilateral; Z23 Encounter for immunization; Z79.899 Other long term (current) drug therapy; Z85.3 Personal history of malignant neoplasm of breast; Z90.11 Acquired absence of right breast and nipple; Z82.49 Family history of ischemic heart disease and other diseases of the circulatory system; Z83.3 Family history of diabetes mellitus; Z88.1 Allergy status to other antibiotic agents; Z88.3 Allergy status to other anti-infective agents; Z88.0 Allergy status to penicillin; Z88.2 Allergy status to sulfonamides
CPT/HCPCS: 01480; 36415; 80048; 80053; 80202; 81001; 82565; 83735; 84132; 85025; 85027; 85652; 86140; 87040; 87070; 87075; 87077; 87086; 87088; 87186; 87205; 88305; 88311; 90686; 93005; 93010; 93926; 99285; G0378; J0131; J0360; J2185; J2250; J2405; J2704; J3010; J3370; J3480; J3490; J7030; J7060; J8610